=== PATIENT | male | born 1965 | race Caucasian/White ===

== ENCOUNTER 2020-03-28 15:40 | Inpatient (IN) | payer BC ==
[~2020-03-28] VITALS: Ht 182.9 cm; Wt 113.6 kg
[2020-03-28] MEDS ORDERED: iohexol 350MG/ML 100ml bottle IV ONE (18:43)
[2020-03-28] MEDS ORDERED: dextrose 50%-water 50ml dispensing syringe IV PRN ×2 (19:45)
[2020-03-28] MEDS ORDERED: mag hydrox/Alum hydrox/simeth 30ml oral suspension PO PRN (19:45)
[2020-03-28] MEDS ORDERED: magnesium hydroxide 30ml (MOM) UD suspension PO PRN (19:45)
[2020-03-28] MEDS ORDERED: dextrose ORAL solution 15 GM/59 ML bottle PO PRN ×2 (19:45)
[2020-03-28] MEDS ORDERED: magnesium Cl slow-release 64mg tablet PO PRN (19:45)
[2020-03-28] MEDS ORDERED: potassium Cl 20 mEq SR tablet PO PRN ×2 (19:45)
[2020-03-28] MEDS ORDERED: MESSAGE TO PHARMACY PO ONE (19:45)
[2020-03-28] MEDS ORDERED: magnesium 2GM in 50ml NS 50 ML IV PRN (19:45)
[2020-03-28] MEDS ORDERED: HYDROcodone/acetaminophen 5mg/325mg tablet PO PRN (19:45)
[2020-03-28] MEDS ORDERED: glucagon, human recombinant 1mg kit SUBCUT PRN (19:45)
[2020-03-28] MEDS ORDERED: ondansetron/PF 4mg/2ml inj IV PRN (19:45)
[2020-03-28] MEDS ORDERED: magnesium 4gm in 100ml NS 100 ML IV PRN (19:45)
[2020-03-28] MEDS ORDERED: acetaminophen 325mg tablet PO PRN (19:45)
[2020-03-28] MEDS ORDERED: potassium CL 10mEq/100ml bag 100 ML IV PRN ×2 (19:45)
[2020-03-28] MEDS: K and/or MAG REPLACEMENT MC SCH (20:00)
[2020-03-28] MEDS: docusate sod 100mg capsule PO SCH (20:00)
[2020-03-28] MEDS ORDERED: AZAT50TA18 PO (20:45)
[2020-03-28] MEDS: insulin glargine (Lantus) pen - multi-dose SQ SCH ×2 (21:00→23:54)
--- NOTE | 2020-03-28 21:00 | NUR ---
I have received report from Jerome SUMMERS and had the opportunity to ask questions and assume patient care.
--- NOTE | 2020-03-28 21:15 | NUR ---
Patient has arrived from ER via gurney. Alert and oriented. Vital signs BP 125/84, Heart rate 94, Temp 98.0 Resp rate 18, O2 93% Blood sugar 527. Skin check performed, MRSA swab obtained. Will continue to monitor and treat as needed.
[2020-03-28 22:00] VITALS: BP 125/84
[2020-03-28] MEDS: normal saline 1000ml 1,000 ML IV SCH (22:44)
[2020-03-28] MEDS: insulin Lispro (HumaLOG) vial - multi-dose SQ SCH (23:21)
[2020-03-28 23:37] LABS: ALANINE AMINOTRANSFERASE 116 U/L (12-78); ALBUMIN/GLOBULIN RATIO 0.4 (1.1-1.5); ALKALINE PHOSPHATASE 112 IU/L (46-116); ANION GAP 14 (8-16); ASPARTATE AMINO TRANSFERASE 119 U/L (10-37); BILIRUBIN,TOTAL 0.8 MG/DL (0.1-1.0); BLOOD UREA NITROGEN 37 MG/DL (7-18); BUN/CREATININE RATIO 16.5 (5.4-32.0); CALCIUM 8.5 MG/DL (8.5-10.1); CHLORIDE 96 MMOL/L (99-107); CREATININE 2.24 MG/DL (0.60-1.10); SODIUM 128 MMOL/L (135-145); TOTAL CARBON DIOXIDE 17.7 MMOL/L (24-32); TOTAL PROTEIN 6.5 G/DL (6.4-8.2); eGFR 31 ML/MIN
--- NOTE | 2020-03-28 23:42 | NUR ---
MESSAGE: Re: Eliseo Rene rm [id number] Patient had a blood sugar of 527, can I give lantus past the scheduled time of 2100. Thank you
--- NOTE | 2020-03-28 23:45 | NUR ---
Not able to treat Blood sugar with lantus at 2100, Lab with GFR not available, medication not on floor, patient was transferring up from ER.
[2020-03-28 23:52] LABS: GLUCOSE 544 MG/DL (70-104)
[2020-03-29 02:00] VITALS: BP 118/79
[2020-03-29 06:00] VITALS: BP 112/79
[2020-03-29 06:11] LABS: BASOPHILS % (AUTO) 0.2 % (0-1); EOSINOPHILS % (AUTO) 0.1 % (0-6); HEMATOCRIT 35.6 % (42.0-52.0); HEMOGLOBIN 11.8 g/dl (14.0-17.9); LYMPHOCYTES # (AUTO) 0.7 X10'3 (1.1-4.8); LYMPHOCYTES % (AUTO) 4.1 % (21-51); MEAN CORPUSCULAR HEMOGLOBIN 29.1 PG (27.0-31.0); MEAN CORPUSCULAR HGB CONC 33.1 g/dL (33.0-36.5); MEAN CORPUSCULAR VOLUME 87.9 FL (78-98); MEAN PLATELET VOLUME 10.1 FL (7.4-10.4); MONOCYTES # (AUTO) 0.6 X10'3 (0-0.9); MONOCYTES % (AUTO) 3.3 % (2-12); NEUTROPHILS # (AUTO) 15.4 X10'3 (1.8-7.7); NEUTROPHILS % (AUTO) 92.3 % (42-75); PLATELET COUNT 131 X10'3 (140-440); RED BLOOD COUNT 4.05 X10'6 (4.70-6.10); RED CELL DISTRIBUTION WIDTH 15.2 % (11.5-14.5); WHITE BLOOD COUNT 16.7 X10'3 (4.5-11.0)
[2020-03-29 06:37] LABS: ALANINE AMINOTRANSFERASE 124 U/L (12-78); ALBUMIN 2.1 G/DL (3.4-5.0); ALBUMIN/GLOBULIN RATIO 0.4 (1.1-1.5); ALKALINE PHOSPHATASE 126 IU/L (46-116); ANION GAP 16 (8-16); ASPARTATE AMINO TRANSFERASE 117 U/L (10-37); BILIRUBIN,TOTAL 0.7 MG/DL (0.1-1.0); BLOOD UREA NITROGEN 45 MG/DL (7-18); CALCIUM 9.1 MG/DL (8.5-10.1); CHLORIDE 98 MMOL/L (99-107); CREATININE 1.96 MG/DL (0.60-1.10); MAGNESIUM 2.6 MG/DL (1.5-2.4); POTASSIUM 4.6 MMOL/L (3.5-5.1); SODIUM 131 MMOL/L (135-145); TOTAL CARBON DIOXIDE 16.7 MMOL/L (24-32); TOTAL PROTEIN 6.9 G/DL (6.4-8.2); eGFR 36 ML/MIN
--- NOTE | 2020-03-29 06:44 | NUR ---
Patient in room PCU 3019. I have received report from Bernice SUMMERS and had the opportunity to ask questions and assume patient care.
[2020-03-29 06:49] LABS: GLUCOSE 531 MG/DL (70-104)
--- NOTE | 2020-03-29 06:52 | NUR ---
Patient in room PCU 3019. I have received report from Trish SUMMERS and had the opportunity to ask questions and assume patient care.
[2020-03-29] MEDS: CefTRIAXone/D5W-Rocephin 1gm 50 ML IV SCH (07:32)
[2020-03-29] MEDS: normal saline 1000ml 1,000 ML IV SCH ×2 (07:32→14:36)
[2020-03-29] MEDS: docusate sod 100mg capsule PO SCH ×2 (08:00→19:17)
[2020-03-29] MEDS: K and/or MAG REPLACEMENT MC SCH ×2 (08:00→20:36)
[2020-03-29] MEDS: insulin Lispro (HumaLOG) vial - multi-dose SQ SCH ×4 (08:30→21:25)
[2020-03-29] MEDS: azithromycin/NS 500mg/250ml 250 ML IV SCH (08:36)
[2020-03-29 11:00] VITALS: BP 105/70
[2020-03-29 15:00] VITALS: BP 98/55
--- NOTE | 2020-03-29 16:40 | NUR ---
DM consult, pt newly diagnosed type 2 DM with hgb A1c of 10.9%, accuchecks range 443-534 mg/dl. Pt seen at bedside and given written DM education handout with verbal review; discussed types of carbs, serving sizes, carb counting, planning meals, exercise, and given RD contact information if any additional questions. Addendum: 03/29/20 at [address] Amended: Links added.
[2020-03-29 18:00] VITALS: BP 107/60
--- NOTE | 2020-03-29 18:05 | NUR ---
Problems reprioritized. Patient report given, questions answered & plan of care reviewed with Minor SUMMERS.
--- NOTE | 2020-03-29 18:07 | NUR ---
Patient in room U 3019. I have received report from KRISTOPHER Queen and had the opportunity to ask questions and assume patient care. Patient resting in bed, no signs of distress. Safety measures in place, bed in low and locked position. Call light and personal items within reach. Will continue to monitor
[2020-03-29] MEDS: insulin glargine (Lantus) pen - multi-dose SQ SCH (21:19)
[2020-03-29 22:00] VITALS: BP 112/54
[2020-03-30] VITALS (8 sets, daily range): BP systolic 89–206; BP diastolic 36–163
[2020-03-30] MEDS: normal saline 1000ml 1,000 ML IV SCH ×2 (05:31→05:32)
[2020-03-30 06:30] LABS: BASOPHILS % (AUTO) 0 % (0-1); EOSINOPHILS % (AUTO) 0.1 % (0-6); HEMATOCRIT 34.3 % (42.0-52.0); HEMOGLOBIN 11.7 g/dl (14.0-17.9); LYMPHOCYTES % (AUTO) 5.7 % (21-51); MEAN CORPUSCULAR HEMOGLOBIN 29.7 PG (27.0-31.0); MEAN CORPUSCULAR HGB CONC 34.2 g/dL (33.0-36.5); MEAN CORPUSCULAR VOLUME 86.9 FL (78-98); MEAN PLATELET VOLUME 9.8 FL (7.4-10.4); MONOCYTES # (AUTO) 0.6 X10'3 (0-0.9); MONOCYTES % (AUTO) 3.4 % (2-12); NEUTROPHILS # (AUTO) 16.5 X10'3 (1.8-7.7); NEUTROPHILS % (AUTO) 90.8 % (42-75); PLATELET COUNT 163 X10'3 (140-440); RED BLOOD COUNT 3.94 X10'6 (4.70-6.10); WHITE BLOOD COUNT 18.1 X10'3 (4.5-11.0)
--- NOTE | 2020-03-30 06:42 | NUR ---
Problems reprioritized. Patient report given, questions answered & plan of care reviewed with KRISTOPHER Fletcher. Medications administered as ordered. Care plan followed. Safety measures in place, bed in low and locked position. Call light and personal items within reach. Will continue to monitor for remainder of shift.
--- NOTE | 2020-03-30 06:51 | NUR ---
Patient in room PCU 3019. I have received report from Minor SUMMERS and had the opportunity to ask questions and assume patient care.
[2020-03-30 06:53] LABS: ALANINE AMINOTRANSFERASE 142 U/L (12-78); ALBUMIN 1.9 G/DL (3.4-5.0); ALBUMIN/GLOBULIN RATIO 0.5 (1.1-1.5); ALKALINE PHOSPHATASE 110 IU/L (46-116); ANION GAP 14 (8-16); ASPARTATE AMINO TRANSFERASE 131 U/L (10-37); BILIRUBIN,TOTAL 0.5 MG/DL (0.1-1.0); BLOOD UREA NITROGEN 37 MG/DL (7-18); BUN/CREATININE RATIO 31.4 (5.4-32.0); CALCIUM 8.9 MG/DL (8.5-10.1); CHLORIDE 106 MMOL/L (99-107); CREATININE 1.18 MG/DL (0.60-1.10); GLUCOSE 293 MG/DL (70-104); MAGNESIUM 2.3 MG/DL (1.5-2.4); POTASSIUM 4.1 MMOL/L (3.5-5.1); SODIUM 140 MMOL/L (135-145); TOTAL CARBON DIOXIDE 20.1 MMOL/L (24-32); TOTAL PROTEIN 6.1 G/DL (6.4-8.2); eGFR 65 ML/MIN
[2020-03-30] MEDS: docusate sod 100mg capsule PO SCH ×2 (08:00→20:00)
[2020-03-30] MEDS: K and/or MAG REPLACEMENT MC SCH ×2 (08:00→20:33)
[2020-03-30] MEDS: CefTRIAXone/D5W-Rocephin 1gm 50 ML IV SCH (08:04)
[2020-03-30] MEDS: heparin, porcine 5000 units/ml vial SQ SCH ×2 (08:05→20:05)
[2020-03-30] MEDS: insulin Lispro (HumaLOG) vial - multi-dose SQ SCH ×2 (08:27→13:00)
[2020-03-30] MEDS: azithromycin/NS 500mg/250ml 250 ML IV SCH (13:04)
--- NOTE | 2020-03-30 15:30 | NUR ---
Patient has temp of 100.8F, HR 150, RR 40's, (+)Short of breath, O2 sat 90-92% on room air. Patient was shivering BP elevated 206/163. Blood sugar checked 207mg/dl. Charge nurse Chika came in to see patient. She called Dr. Holt to update about patient condition
--- NOTE | 2020-03-30 15:35 | NUR ---
ID: [id number] MESSAGE: [id number] KRYSTYNA. RAPID CALLED. HR 150. BP 206/163. RR 43. BS 207. LUIS M SHANNANU
[2020-03-30] MEDS ORDERED: normal saline 1000ml 1,000 ML IV ONE ×2 (15:45→19:50)
[2020-03-30] MEDS ORDERED: methylPREDNISolone sod succ 125mg/2ml vial IV ONE (15:45)
--- NOTE | 2020-03-30 15:50 | NUR ---
BP was 85/37, HR 140's, still short of breath, hooked patient to O2 @ 2lpm/nc - O2 sat 94%
--- NOTE | 2020-03-30 15:52 | NUR ---
BULK PLANT SUPERVISOR Clara talking to Dr. Holt on the phone regarding patient condition
--- NOTE | 2020-03-30 15:57 | NUR ---
IVF NS 1L bolus ongoing right now. BP 91/36, HR 146, O2 sat 96% at 4lpm/nc.
[2020-03-30] MEDS ORDERED: acetaminophen 650mg rectal suppository RC STA (16:03)
--- NOTE | 2020-03-30 16:08 | NUR ---
RAISA Sylvester came by to see patient. Received order to give Tylenol suppository x 1
[2020-03-30 16:30] LABS: ALANINE AMINOTRANSFERASE 168 U/L (12-78); ALBUMIN/GLOBULIN RATIO 0.5 (1.1-1.5); ALKALINE PHOSPHATASE 225 IU/L (46-116); ANION GAP 14 (8-16); ASPARTATE AMINO TRANSFERASE 167 U/L (10-37); BILIRUBIN,TOTAL 0.9 MG/DL (0.1-1.0); BLOOD UREA NITROGEN 40 MG/DL (7-18); BUN/CREATININE RATIO 23.3 (5.4-32.0); CALCIUM 10.1 MG/DL (8.5-10.1); CHLORIDE 108 MMOL/L (99-107); CREATININE 1.72 MG/DL (0.60-1.10); GLUCOSE 195 MG/DL (70-104); POTASSIUM 3.3 MMOL/L (3.5-5.1); SODIUM 141 MMOL/L (135-145); TOTAL CARBON DIOXIDE 18.6 MMOL/L (24-32); TOTAL PROTEIN 6.4 G/DL (6.4-8.2); eGFR 42 ML/MIN
[2020-03-30] MEDS ORDERED: vancomycin/NS 1 GM ADD-VANTAGE 250 ML IV ONE (16:30)
[2020-03-30 16:33] LABS: TROPONIN I 0.07 NG/ML (0.0-0.05)
[2020-03-30 16:36] LABS: ABG BASE EXCESS -6.5 mmol/L (-2.0-2.0); ABG HCO3 13.6 mmol/L (22.0-26.0); ABG OXYGEN SATURATION 96.4 % (94-97); ABG PCO2 (T) 19.3 mmHg (35.0-48.0); ABG PO2 (T) 91.1 mmHg (75.0-100.0); ALLEN'S TEST POSITIVE; FCOHb 0.6 % (0.0-3.9); FLOW 4 L/min; FMetHb 0.2 % (0.0-1.5); FO2Hb 95.6 % (94-97); PATIENT TEMPERATURE 38.8; TOTAL HEMOGLOBIN 14.7 G/dl (14.0-18.0)
[2020-03-30] MEDS ORDERED: potassium Cl 40MEQ/1/2NS 520ml 520 ML IV PRN (16:55)
--- NOTE | 2020-03-30 17:01 | NUR ---
RT PAGED FOR BIPAP ORDER. BIPAP PLACED ON PATIENT AND PATIENT STATED THAT HE DID NOT WANT BIPAP LEFT ON HIM AND THAT IT WAS INCREASING HIS ANXIETY. BIPAP WAS TAKEN OFF, PATIENT PLACED ON 2LNC. BOTH RN AND MARCO ANTONIO NOTIFIED. Addendum: 03/30/20 at 1707 by Terese Call RT Amended: Links added.
[2020-03-30] MEDS: piperacillin/tazo 4.5gm/100ml 100 ML IV SCH (17:07)
[2020-03-30] MEDS ORDERED: VANCOmycin 2,000MG in NS 500ml IV soln IV ONE (17:15)
[2020-03-30] MEDS: potassium cl 20mEq in 1/2 NS 1,000 ML IV SCH (17:51)
--- NOTE | 2020-03-30 18:00 | NUR ---
Patient in room PCU 3019. I have received report from Bisi SUMMERS and had the opportunity to ask questions and assume patient care.
--- NOTE | 2020-03-30 18:16 | NUR ---
Problems reprioritized. Patient report given, questions answered & plan of care reviewed with Shilpi SUMMERS and Yassine SUMMERS.
[2020-03-30 19:32] LABS: BASOPHILS % (AUTO) 0.4 % (0-1); EOSINOPHILS # (AUTO) 0.3 X10'3 (0-0.9); EOSINOPHILS % (AUTO) 3.3 % (0-6); HEMATOCRIT 36.8 % (42.0-52.0); HEMOGLOBIN 12.5 g/dl (14.0-17.9); LYMPHOCYTES # (AUTO) 0.2 X10'3 (1.1-4.8); LYMPHOCYTES % (AUTO) 2.8 % (21-51); MEAN CORPUSCULAR HEMOGLOBIN 29.4 PG (27.0-31.0); MEAN CORPUSCULAR HGB CONC 34.1 g/dL (33.0-36.5); MEAN CORPUSCULAR VOLUME 86.2 FL (78-98); MEAN PLATELET VOLUME 9.5 FL (7.4-10.4); MONOCYTES # (AUTO) 0.1 X10'3 (0-0.9); MONOCYTES % (AUTO) 1.3 % (2-12); NEUTROPHILS # (AUTO) 8.2 X10'3 (1.8-7.7); NEUTROPHILS % (AUTO) 92.2 % (42-75); PLATELET COUNT 162 X10'3 (140-440); RED BLOOD COUNT 4.27 X10'6 (4.70-6.10); RED CELL DISTRIBUTION WIDTH 15.2 % (11.5-14.5); WHITE BLOOD COUNT 8.9 X10'3 (4.5-11.0)
[2020-03-30 19:33] LABS: ALANINE AMINOTRANSFERASE 145 U/L (12-78); ALBUMIN 1.8 G/DL (3.4-5.0); ALBUMIN/GLOBULIN RATIO 0.5 (1.1-1.5); ALKALINE PHOSPHATASE 138 IU/L (46-116); ANION GAP 13 (8-16); ASPARTATE AMINO TRANSFERASE 140 U/L (10-37); BILIRUBIN,TOTAL 0.8 MG/DL (0.1-1.0); BLOOD UREA NITROGEN 41 MG/DL (7-18); BUN/CREATININE RATIO 20.1 (5.4-32.0); CALCIUM 8.6 MG/DL (8.5-10.1); CHLORIDE 108 MMOL/L (99-107); CREATININE 2.04 MG/DL (0.60-1.10); GLUCOSE 147 MG/DL (70-104); POTASSIUM 3.3 MMOL/L (3.5-5.1); SODIUM 140 MMOL/L (135-145); TOTAL CARBON DIOXIDE 19.3 MMOL/L (24-32); TOTAL PROTEIN 5.6 G/DL (6.4-8.2); eGFR 34 ML/MIN
[2020-03-30] MEDS ORDERED: normal saline 1000ml 1,000 ML IVB ONE (19:55)
[2020-03-30] MEDS ORDERED: methylPREDNISolone sod succ 125mg/2ml vial IV SCH (20:00)
[2020-03-30] MEDS: methylPREDNISolone sod succ/PF 40mg inj. IV SCH (20:04)
[2020-03-30] MEDS: insulin glargine (Lantus) pen - multi-dose SQ SCH (20:32)
[2020-03-30 23:31] LABS: CLARITY,URINE SLIGHTLY CLOUDY (Clear); COLOR,URINE YELLOW (Yellow); GLUCOSE, URINE NEGATIVE (Neg); KETONES,URINE NEGATIVE (Neg); LEUKOCYTE ESTERASE ,URINE LARGE (Neg); NITRITES, URINE NEGATIVE (Neg); OCCULT BLOOD,URINE MODERATE (Neg); PH,URINE 5.5 (4.8-8.0); PROTEIN,URINE 30 mg/dl (Neg)
[2020-03-30 23:38] LABS: UA COLLECTION TYPE CLN CATCH MIDSTREAM
[2020-03-30 23:39] LABS: BACTERIA,URINE FEW /HPF (Neg); SQUAMOUS EPITHELIAL CELL,UR FEW /LPF (FEW); WBC,URINE 50-100 /HPF (0-4)
[2020-03-30 23:40] LABS: WBC CLUMPS,URINE FEW /HPF (NEGATIVE)
[2020-03-30 23:50] LABS: URINE AMPHETAMINE SCREEN NEGATIVE (Neg); URINE BARBITUATE SCREEN NEGATIVE (Neg); URINE BENZODIAZEPINES SCREEN NEGATIVE (Neg); URINE CANNABINOID SCREEN NEGATIVE (Neg); URINE COCAINE SCREEN NEGATIVE (Neg); URINE METHADONE SCREEN NEGATIVE (Neg); URINE OPIATE SCREEN NEGATIVE (Neg); URINE PHENCYCLIDINE SCREEN NEGATIVE (Neg)
[2020-03-31] MEDS: potassium cl 20mEq in 1/2 NS 1,000 ML IV SCH ×3 (00:21→07:48)
[2020-03-31] MEDS: piperacillin/tazo 4.5gm/100ml 100 ML IV SCH ×3 (00:21→16:06)
[2020-03-31] MEDS: methylPREDNISolone sod succ/PF 40mg inj. IV SCH ×4 (01:44→21:00)
[2020-03-31 02:00] VITALS: BP 85/60
[2020-03-31] MEDS: vancomycin/NS 1 GM ADD-VANTAGE 250 ML IV SCH ×2 (04:49→17:23)
[2020-03-31 05:01] LABS: ABG BASE EXCESS -9.2 mmol/L (-2.0-2.0); ABG OXYGEN SATURATION 96.8 % (94-97); ABG PCO2 (T) 27.1 mmHg (35.0-48.0); ABG PO2 (T) 92.8 mmHg (75.0-100.0); ALLEN'S TEST POSITIVE; FMetHb 0.2 % (0.0-1.5); FO2Hb 96.6 % (94-97); PATIENT TEMPERATURE 36.6; TOTAL HEMOGLOBIN 11.7 G/dl (14.0-18.0)
--- NOTE | 2020-03-31 06:09 | NUR ---
Orientee documentation: I have reviewed and agree with all interventions, assessments performed and documented by Ariana SUMMERS.
[2020-03-31 06:11] LABS: EOSINOPHILS % (AUTO) 0 % (0-6); HEMATOCRIT 33.9 % (42.0-52.0); MEAN PLATELET VOLUME 9.6 FL (7.4-10.4); NEUTROPHILS % (AUTO) 97.5 % (42-75)
[2020-03-31 06:14] LABS: BASOPHILS % (AUTO) 0.2 % (0-1); HEMOGLOBIN 11.4 g/dl (14.0-17.9); LYMPHOCYTES # (AUTO) 0.3 X10'3 (1.1-4.8); LYMPHOCYTES % (AUTO) 1.2 % (21-51); MEAN CORPUSCULAR HEMOGLOBIN 29.5 PG (27.0-31.0); MEAN CORPUSCULAR HGB CONC 33.5 g/dL (33.0-36.5); MEAN CORPUSCULAR VOLUME 88.1 FL (78-98); MONOCYTES # (AUTO) 0.3 X10'3 (0-0.9); MONOCYTES % (AUTO) 1.1 % (2-12); NEUTROPHILS # (AUTO) 24.2 X10'3 (1.8-7.7); PLATELET COUNT 180 X10'3 (140-440); RED BLOOD COUNT 3.85 X10'6 (4.70-6.10); RED CELL DISTRIBUTION WIDTH 15.2 % (11.5-14.5); WHITE BLOOD COUNT 24.8 X10'3 (4.5-11.0)
--- NOTE | 2020-03-31 06:22 | NUR ---
Problems reprioritized. Patient report given, questions answered & plan of care reviewed with Haleigh SUMMERS.
[2020-03-31 06:52] LABS: ALANINE AMINOTRANSFERASE 209 U/L (12-78); ALBUMIN 1.7 G/DL (3.4-5.0); ALBUMIN/GLOBULIN RATIO 0.4 (1.1-1.5); ALKALINE PHOSPHATASE 125 IU/L (46-116); ANION GAP 15 (8-16); ASPARTATE AMINO TRANSFERASE 273 U/L (10-37); BILIRUBIN,TOTAL 1.6 MG/DL (0.1-1.0); BLOOD UREA NITROGEN 36 MG/DL (7-18); BUN/CREATININE RATIO 20.5 (5.4-32.0); CALCIUM 9.2 MG/DL (8.5-10.1); CHLORIDE 107 MMOL/L (99-107); CREATININE 1.76 MG/DL (0.60-1.10); GLUCOSE 317 MG/DL (70-104); MAGNESIUM 1.9 MG/DL (1.5-2.4); POTASSIUM 4.5 MMOL/L (3.5-5.1); SODIUM 138 MMOL/L (135-145); TOTAL PROTEIN 5.6 G/DL (6.4-8.2); eGFR 41 ML/MIN
[2020-03-31 07:00] VITALS: BP 107/68
[2020-03-31] MEDS: heparin, porcine 5000 units/ml vial SQ SCH ×2 (07:49→20:59)
[2020-03-31] MEDS: K and/or MAG REPLACEMENT MC SCH ×2 (07:49→19:01)
[2020-03-31] MEDS: docusate sod 100mg capsule PO SCH ×2 (07:50→20:00)
[2020-03-31 09:04] LABS: TOTAL CELLS COUNTED 100
[2020-03-31 09:06] LABS: PLATELET ESTIMATE NORMAL; POLYCHROMASIA FEW
[2020-03-31] MEDS: insulin Lispro (HumaLOG) vial - multi-dose SQ SCH ×4 (10:00→21:16)
[2020-03-31 11:00] VITALS: BP 127/54
[2020-03-31 11:51] LABS: HIV ANTIBODY 1&2 RAPID NON-REACTIVE (Neg)
[2020-03-31] MEDS ORDERED: LORazepam 2 mg/ml vial IV ONE (12:45)
--- NOTE | 2020-03-31 14:08 | NUR ---
PAGER ID: [phone] MESSAGE: Corby BondsEdgard. Pt was unable to have MRI at this time as he was unable to follow commands and stay still. MRI will try again later. Haleigh [phone]
[2020-03-31 15:00] VITALS: BP 98/62
[2020-03-31] MEDS: sodium bicarbonate 650mg tablet PO SCH ×2 (16:05→20:59)
--- NOTE | 2020-03-31 17:52 | NUR ---
post void bladder scan 240ml
--- NOTE | 2020-03-31 18:17 | NUR ---
Problems reprioritized. Patient report given, questions answered & plan of care reviewed with Karen SUMMERS.
[2020-03-31 18:54] VITALS: BP 105/65
[2020-03-31] MEDS: insulin glargine (Lantus) pen - multi-dose SQ SCH (21:17)
[2020-03-31 22:41] VITALS: BP 105/67
[2020-04-01] MEDS: piperacillin/tazo 4.5gm/100ml 100 ML IV SCH ×2 (00:13→07:40)
[2020-04-01] MEDS: potassium cl 20mEq in 1/2 NS 1,000 ML IV SCH ×5 (01:50→20:19)
[2020-04-01 02:00] VITALS: BP 107/72
[2020-04-01] MEDS: vancomycin/NS 1 GM ADD-VANTAGE 250 ML IV SCH (04:40)
[2020-04-01 06:00] VITALS: BP 118/74
[2020-04-01 06:16] LABS: BASOPHILS % (AUTO) 0.1 % (0-1); EOSINOPHILS % (AUTO) 0 % (0-6); HEMATOCRIT 33.5 % (42.0-52.0); HEMOGLOBIN 11.3 g/dl (14.0-17.9); LYMPHOCYTES # (AUTO) 0.6 X10'3 (1.1-4.8); LYMPHOCYTES % (AUTO) 2.9 % (21-51); MEAN CORPUSCULAR HEMOGLOBIN 29.4 PG (27.0-31.0); MEAN CORPUSCULAR HGB CONC 33.8 g/dL (33.0-36.5); MEAN CORPUSCULAR VOLUME 87.1 FL (78-98); MEAN PLATELET VOLUME 9.4 FL (7.4-10.4); MONOCYTES # (AUTO) 0.6 X10'3 (0-0.9); MONOCYTES % (AUTO) 2.7 % (2-12); NEUTROPHILS # (AUTO) 20.9 X10'3 (1.8-7.7); NEUTROPHILS % (AUTO) 94.3 % (42-75); PLATELET COUNT 209 X10'3 (140-440); RED BLOOD COUNT 3.85 X10'6 (4.70-6.10); RED CELL DISTRIBUTION WIDTH 15.1 % (11.5-14.5); WHITE BLOOD COUNT 22.2 X10'3 (4.5-11.0)
--- NOTE | 2020-04-01 06:28 | NUR ---
REPORT GIVEN TO KRISTOPHER CARDONA.
[2020-04-01 06:41] LABS: ALANINE AMINOTRANSFERASE 172 U/L (12-78); ALBUMIN 1.6 G/DL (3.4-5.0); ALBUMIN/GLOBULIN RATIO 0.4 (1.1-1.5); ALKALINE PHOSPHATASE 120 IU/L (46-116); ANION GAP 13 (8-16); ASPARTATE AMINO TRANSFERASE 93 U/L (10-37); BILIRUBIN,TOTAL 0.8 MG/DL (0.1-1.0); BLOOD UREA NITROGEN 34 MG/DL (7-18); BUN/CREATININE RATIO 27.2 (5.4-32.0); CALCIUM 8.5 MG/DL (8.5-10.1); CHLORIDE 107 MMOL/L (99-107); CREATININE 1.25 MG/DL (0.60-1.10); GLUCOSE 301 MG/DL (70-104); POTASSIUM 3.5 MMOL/L (3.5-5.1); SODIUM 140 MMOL/L (135-145); TOTAL CARBON DIOXIDE 20.5 MMOL/L (24-32); TOTAL PROTEIN 5.6 G/DL (6.4-8.2); eGFR 61 ML/MIN
--- NOTE | 2020-04-01 06:48 | NUR ---
Patient in room PCU 3019. I have received report from Jenny SUMMERS and had the opportunity to ask questions and assume patient care.
[2020-04-01] MEDS: docusate sod 100mg capsule PO SCH ×2 (08:00→20:07)
[2020-04-01] MEDS: K and/or MAG REPLACEMENT MC SCH ×2 (08:00→20:00)
[2020-04-01] MEDS: sodium bicarbonate 650mg tablet PO SCH ×3 (08:25→20:07)
[2020-04-01] MEDS: heparin, porcine 5000 units/ml vial SQ SCH ×2 (08:25→20:07)
[2020-04-01] MEDS: methylPREDNISolone sod succ/PF 40mg inj. IV SCH ×2 (08:26→20:07)
[2020-04-01] MEDS: insulin Lispro (HumaLOG) vial - multi-dose SQ SCH ×4 (08:49→21:23)
[2020-04-01 11:00] VITALS: BP 108/69
[2020-04-01] MEDS: levoFLOXACIN-Levaquin 750MG/D5 150 ML IV SCH (12:01)
[2020-04-01] MEDS: metroNIDAZOLE-Flagyl 500mg/NS 100 ML IV SCH ×3 (12:01→23:34)
[2020-04-01 15:50] VITALS: BP 108/70
[2020-04-01] MEDS ORDERED: VANCOMYCIN LEVEL IV ONE (16:30)
[2020-04-01 18:00] VITALS: BP 143/96
--- NOTE | 2020-04-01 18:53 | NUR ---
Problems reprioritized. Patient report given, questions answered & plan of care reviewed with Ranjit SUMMERS.
[2020-04-01] MEDS: lactobacillus rhamnosus 10,000 MMU CELLS/CAPSULE PO SCH (20:07)
[2020-04-01] MEDS: insulin glargine (Lantus) pen - multi-dose SQ SCH (21:22)
[2020-04-01 22:00] VITALS: BP 109/65
--- NOTE | 2020-04-02 01:32 | NUR ---
Patient in room PCU 3019. I have received report from Cindy SUMMERS and had the opportunity to ask questions and assume patient care.
[2020-04-02 02:00] VITALS: BP 143/96
--- NOTE | 2020-04-02 06:00 | NUR ---
Patient in room PCU 3019. I have received report from KRISTOPHER Barber and had the opportunity to ask questions and assume patient care.
[2020-04-02 06:01] LABS: BASOPHILS # (AUTO) 0.1 X10'3 (0-0.2); BASOPHILS % (AUTO) 0.3 % (0-1); EOSINOPHILS % (AUTO) 0 % (0-6); HEMATOCRIT 36.3 % (42.0-52.0); HEMOGLOBIN 12.2 g/dl (14.0-17.9); LYMPHOCYTES # (AUTO) 0.8 X10'3 (1.1-4.8); LYMPHOCYTES % (AUTO) 4.6 % (21-51); MEAN CORPUSCULAR HEMOGLOBIN 29.2 PG (27.0-31.0); MEAN CORPUSCULAR HGB CONC 33.6 g/dL (33.0-36.5); MEAN CORPUSCULAR VOLUME 86.7 FL (78-98); MEAN PLATELET VOLUME 9.3 FL (7.4-10.4); MONOCYTES # (AUTO) 0.5 X10'3 (0-0.9); NEUTROPHILS # (AUTO) 16.1 X10'3 (1.8-7.7); NEUTROPHILS % (AUTO) 92.1 % (42-75); PLATELET COUNT 249 X10'3 (140-440); RED BLOOD COUNT 4.18 X10'6 (4.70-6.10); RED CELL DISTRIBUTION WIDTH 15.3 % (11.5-14.5); WHITE BLOOD COUNT 17.5 X10'3 (4.5-11.0)
[2020-04-02 06:23] LABS: ALANINE AMINOTRANSFERASE 118 U/L (12-78); ALBUMIN 1.6 G/DL (3.4-5.0); ALBUMIN/GLOBULIN RATIO 0.4 (1.1-1.5); ALKALINE PHOSPHATASE 118 IU/L (46-116); ANION GAP 8 (8-16); ASPARTATE AMINO TRANSFERASE 32 U/L (10-37); BILIRUBIN,TOTAL 0.5 MG/DL (0.1-1.0); BLOOD UREA NITROGEN 31 MG/DL (7-18); BUN/CREATININE RATIO 31.3 (5.4-32.0); CALCIUM 8.2 MG/DL (8.5-10.1); CHLORIDE 107 MMOL/L (99-107); CREATININE 0.99 MG/DL (0.60-1.10); GLUCOSE 248 MG/DL (70-104); MAGNESIUM 1.8 MG/DL (1.5-2.4); POTASSIUM 3.7 MMOL/L (3.5-5.1); SODIUM 139 MMOL/L (135-145); TOTAL CARBON DIOXIDE 23.8 MMOL/L (24-32); TOTAL PROTEIN 5.4 G/DL (6.4-8.2); eGFR 79 ML/MIN
--- NOTE | 2020-04-02 06:23 | NUR ---
Problems reprioritized. Patient report given, questions answered & plan of care reviewed with Krystina SUMMERS.
[2020-04-02 06:57] VITALS: BP 124/77
[2020-04-02] MEDS: metroNIDAZOLE-Flagyl 500mg/NS 100 ML IV SCH ×2 (07:27→15:16)
[2020-04-02] MEDS: potassium cl 20mEq in 1/2 NS 1,000 ML IV SCH ×2 (07:27→21:37)
[2020-04-02] MEDS: sodium bicarbonate 650mg tablet PO SCH ×3 (07:28→21:36)
[2020-04-02] MEDS: methylPREDNISolone sod succ/PF 40mg inj. IV SCH ×2 (07:28→21:36)
[2020-04-02] MEDS: heparin, porcine 5000 units/ml vial SQ SCH ×2 (07:28→21:36)
[2020-04-02] MEDS: lactobacillus rhamnosus 10,000 MMU CELLS/CAPSULE PO SCH ×2 (07:28→21:35)
[2020-04-02] MEDS: docusate sod 100mg capsule PO SCH ×2 (07:43→19:20)
[2020-04-02] MEDS: K and/or MAG REPLACEMENT MC SCH ×2 (08:00→19:19)
[2020-04-02] MEDS: insulin Lispro (HumaLOG) vial - multi-dose SQ SCH ×4 (08:54→21:49)
[2020-04-02] MEDS: levoFLOXACIN-Levaquin 750MG/D5 150 ML IV SCH (08:55)
[2020-04-02 10:20] LABS: PLATELET ESTIMATE NORMAL; TOTAL CELLS COUNTED 100
[2020-04-02 10:21] LABS: TOXIC GRANULATION 2+
[2020-04-02 11:00] VITALS: BP 123/81
[2020-04-02 14:48] LABS: HBSAG SCREEN Negative (Negative); HEP A AB, IGM Negative (Negative); HEPATITIS C ANTIBODY <0.1 s/co ratio (0.0-0.9)
--- NOTE | 2020-04-02 14:49 | NUR ---
Initial: Pt admit DX RLL PNA, newly DX T2DM A1C 10.9 w/ hx ulcerative colitis taking steroids TREE SURGEON HELPER, lactic acidosis, and sepsis r/t UTI and pyelonephritis per EMR. Acute respiratory failure resolved at this time per MD note; PO hx reflects this w/ 100% PO past 3 carb controlled meals up from 0-25% initially. LBM 04/02; noted as diarrhea today but did receive colace yesterday per EMR. Glu 313 down from 506 w/ increasing Lantus dosages as appropriate per EMR. Given improving PO and additional protein needs w/ DX double proteins added to lunches. Will continue to monitor for PO acceptance and additional protein needs. Rec: 1. continue carb controlled diet; double meats w/ lunches 2. bowel care per rx 3. wt per rx Addendum: 04/02/20 at [address] Amended: Links added.
[2020-04-02 15:00] VITALS: BP 131/77
[2020-04-02 18:00] VITALS: BP 136/84
--- NOTE | 2020-04-02 18:38 | NUR ---
Problems reprioritized. Patient report given, questions answered & plan of care reviewed with KRISTOPHER Ortega.
[2020-04-02] MEDS ORDERED: temazepam 15mg capsule PO ONE (19:35)
[2020-04-02] MEDS: insulin glargine (Lantus) pen - multi-dose SQ SCH (21:51)
[2020-04-02 22:00] VITALS: BP 120/68
[2020-04-03] MEDS: metroNIDAZOLE-Flagyl 500mg/NS 100 ML IV SCH ×2 (00:39→07:45)
[2020-04-03 02:00] VITALS: BP 127/80
[2020-04-03 06:30] VITALS: BP 120/74
--- NOTE | 2020-04-03 06:39 | NUR ---
Problems reprioritized. Patient report given, questions answered & plan of care reviewed with Justine SUMMERS.
--- NOTE | 2020-04-03 06:43 | NUR ---
Patient in room PCU 3019. I have received report from Shannon SUMMERS and had the opportunity to ask questions and assume patient care.
[2020-04-03] MEDS: methylPREDNISolone sod succ/PF 40mg inj. IV SCH (07:42)
[2020-04-03] MEDS: lactobacillus rhamnosus 10,000 MMU CELLS/CAPSULE PO SCH (07:43)
[2020-04-03] MEDS: sodium bicarbonate 650mg tablet PO SCH (07:43)
[2020-04-03] MEDS: docusate sod 100mg capsule PO SCH (07:44)
[2020-04-03] MEDS: heparin, porcine 5000 units/ml vial SQ SCH (07:46)
[2020-04-03] MEDS: potassium cl 20mEq in 1/2 NS 1,000 ML IV SCH (08:29)
[2020-04-03] MEDS: insulin Lispro (HumaLOG) vial - multi-dose SQ SCH (08:37)
[2020-04-03] MEDS: levoFLOXACIN-Levaquin 750MG/D5 150 ML IV SCH (09:27)
[2020-04-03] MEDS ORDERED: PRED20TA PO (10:31)
[2020-04-03] MEDS ORDERED: LACT1CAP26 PO (10:31)
[2020-04-03] MEDS ORDERED: METR-159 PO (10:31)
[2020-04-03] MEDS ORDERED: LEVO750T46 PO (10:31)
[2020-04-03] MEDS ORDERED: sodium bicarbonate tablet PO (10:31)
[2020-04-03] MEDS ORDERED: ALBU8.5H8 IH (10:31)
[2020-04-03] MEDS ORDERED: LINA5TAB4 PO (10:31)
[2020-04-03] MEDS ORDERED: AMA1T PO (10:31)
[2020-04-03] MEDS ORDERED: METF-950 PO (10:31)
[2020-04-03] MEDS ORDERED: SODI650T29 PO (10:32)
[2020-04-03 11:00] VITALS: BP 117/73
--- NOTE | 2020-04-03 11:55 | NUR ---
Discharge instructions given to patient, patient verbalized understanding of all instructions given. New prescriptions e-sent to his pharmacy. Peripheral IV catheter removed, tip intact. Instructed patient to ensure he has all his belongings with him before leaving the hospital. Emphasized follow up with his PCP and other provider. A1C result discussed with patient. Patient was advised to buy glucometer and supplies as it is important that he check his blood sugar before meals
[2020-04-04] MEDS ORDERED: LEVO750T46 PO (18:56)
[2020-04-04] MEDS ORDERED: METF-436 PO (18:56)
[2020-04-04] MEDS ORDERED: ALBU8.5H8 IH (18:56)
[2020-04-04] MEDS ORDERED: GLIM1TAB6 PO (18:56)
[2020-04-04] MEDS ORDERED: PRED10TA PO (18:56)
[2020-04-04] MEDS ORDERED: LACT1CAP26 PO (18:56)
[2020-04-04] MEDS ORDERED: METR500T PO (18:56)
[2020-04-04] MEDS ORDERED: LINA5TAB4 PO (18:56)
[2020-04-04] MEDS ORDERED: SODI650T29 PO ×2 (18:58)
== END 2020-04-03 12:39 | disposition home or self-care (01) | DRG 871 ==
LOC: ER 15:41 → ED HOLD 19:42 → PCU 3S 21:26
PROVIDERS: ADMIT Family Medicine; ATTEND Family Medicine
PROC: B32T1ZZ Computerized Tomography (CT Scan) of Left Pulmonary Artery using Low Osmolar Contrast (ICD-10-PCS; principal; 2020-03-28)
PROC: B3201ZZ Computerized Tomography (CT Scan) of Thoracic Aorta using Low Osmolar Contrast (ICD-10-PCS; 2020-03-28)
PROC: B32S1ZZ Computerized Tomography (CT Scan) of Right Pulmonary Artery using Low Osmolar Contrast (ICD-10-PCS; 2020-03-28)
DX: A41.9 Sepsis, unspecified organism (principal); J18.9 Pneumonia, unspecified organism; J96.21 Acute and chronic respiratory failure with hypoxia; R65.21 Severe sepsis with septic shock; E87.4 Mixed disorder of acid-base balance; J98.11 Atelectasis; N12 Tubulo-interstitial nephritis, not specified as acute or chronic; N17.9 Acute kidney failure, unspecified; E87.2 Acidosis; K52.9 Noninfective gastroenteritis and colitis, unspecified; Z20.828 Contact with and (suspected) exposure to other viral communicable diseases; B34.9 Viral infection, unspecified; I49.3 Ventricular premature depolarization; D35.2 Benign neoplasm of pituitary gland; E11.65 Type 2 diabetes mellitus with hyperglycemia; Z53.20 Procedure and treatment not carried out because of patient's decision for unspecified reasons; R68.2 Dry mouth, unspecified; Z79.899 Other long term (current) drug therapy; E87.6 Hypokalemia
CPT/HCPCS: 36415; 36600; 70450; 70544; 70551; 71045; 71275; 74176; 76700; 80053; 80202; 80305; 81001; 82803; 82948; 83036; 83605; 83735; 84145; 84443; 84484; 85007; 85018; 85025; 86703; 86705; 86706; 86709; 86803; 87040; 87081; 87088; 87340; 93005; 93306; 94660; 94760; 94799; 97116; 97161; 97530; 99285; G0378; J0456; J0696; J1644; J1815; J1956; J2060; J2543; J2920; J2930; J3370; J3480; J3490; J7030; J7040; J7500; Q9967

== ENCOUNTER 2020-04-04 17:55 | Inpatient (IN) | payer BC ==
[~2020-04-04] VITALS: Ht 182.9 cm; Wt 115.5 kg
[~2020-04-04 17:55] MED LIST: ALBU8.5H8 IH; AMA1T PO; AZAT50TA18 PO; LACT1CAP26 PO; LEVO750T46 PO; LINA5TAB4 PO; METF-950 PO; METR-159 PO; PRED20TA PO; SODI650T29 PO; sodium bicarbonate tablet PO
[2020-04-04 18:43] LABS: MEAN PLATELET VOLUME 8.1 FL (7.4-10.4)
[2020-04-04 18:45] LABS: HEMATOCRIT 39.4 % (42.0-52.0); HEMOGLOBIN 13.1 g/dl (14.0-17.9); MEAN CORPUSCULAR HEMOGLOBIN 28.9 PG (27.0-31.0); MEAN CORPUSCULAR HGB CONC 33.4 g/dL (33.0-36.5); MEAN CORPUSCULAR VOLUME 86.6 FL (78-98); PLATELET COUNT 270 X10'3 (140-440); RED BLOOD COUNT 4.55 X10'6 (4.70-6.10)
[2020-04-04] MEDS ORDERED: LACT1CAP26 PO (18:56)
[2020-04-04] MEDS ORDERED: LINA5TAB4 PO (18:56)
[2020-04-04] MEDS ORDERED: METF-436 PO (18:56)
[2020-04-04] MEDS ORDERED: PRED10TA PO (18:56)
[2020-04-04] MEDS ORDERED: GLIM1TAB6 PO (18:56)
[2020-04-04] MEDS ORDERED: ALBU8.5H8 IH (18:56)
[2020-04-04] MEDS ORDERED: METR500T PO (18:56)
[2020-04-04] MEDS ORDERED: LEVO750T46 PO (18:56)
[2020-04-04] MEDS ORDERED: SODI650T29 PO ×2 (18:58)
[2020-04-04 19:09] LABS: ALANINE AMINOTRANSFERASE 68 U/L (12-78); ALBUMIN 1.7 G/DL (3.4-5.0); ALBUMIN/GLOBULIN RATIO 0.5 (1.1-1.5); ALKALINE PHOSPHATASE 124 IU/L (46-116); ANION GAP 10 (8-16); ASPARTATE AMINO TRANSFERASE 32 U/L (10-37); BILIRUBIN,TOTAL 0.9 MG/DL (0.1-1.0); BLOOD UREA NITROGEN 21 MG/DL (7-18); CALCIUM 7.8 MG/DL (8.5-10.1); CHLORIDE 104 MMOL/L (99-107); CREATININE 1.61 MG/DL (0.60-1.10); GLUCOSE 164 MG/DL (70-104); POTASSIUM 3.4 MMOL/L (3.5-5.1); SODIUM 139 MMOL/L (135-145); TOTAL PROTEIN 5.1 G/DL (6.4-8.2); eGFR 45 ML/MIN
[2020-04-04 19:55] LABS: WHITE BLOOD COUNT 37.4 X10'3 (4.5-11.0)
[2020-04-04 20:48] LABS: TOTAL CELLS COUNTED 100
[2020-04-04 20:49] LABS: LARGE PLATELETS FEW; PLATELET ESTIMATE NORMAL; TOXIC GRANULATION 1+; TOXIC VACUOLATION 1+
[2020-04-04] MEDS ORDERED: iohexol 300mg/ml 100ml inj. ONE (20:54)
[2020-04-04] MEDS ORDERED: iohexol 350MG/ML 100ml bottle IV ONE (20:55)
--- NOTE | 2020-04-04 20:56 | NUR ---
LITZY GREENWOOD [phone]. CONTACT FOR ZIGGY
[2020-04-04 21:34] LABS: CLARITY,URINE CLEAR (Clear); COLOR,URINE YELLOW (Yellow); GLUCOSE, URINE NEGATIVE (Neg); KETONES,URINE NEGATIVE (Neg); LEUKOCYTE ESTERASE ,URINE MODERATE (Neg); NITRITES, URINE NEGATIVE (Neg); OCCULT BLOOD,URINE SMALL (Neg); PH,URINE 5.5 (4.8-8.0); PROTEIN,URINE 30 mg/dl (Neg); UROBILINOGEN,URINE 0.2 E.U/dL (0.2-1.0)
[2020-04-04 21:41] LABS: BACTERIA,URINE 2+ /HPF (Neg); RBC,URINE 0-2 /HPF (0-2); SQUAMOUS EPITHELIAL CELL,UR FEW /LPF (FEW); UA COLLECTION TYPE CLN CATCH MIDSTREAM; WBC,URINE 30-50 /HPF (0-4)
[2020-04-04 21:42] LABS: WBC CLUMPS,URINE FEW /HPF (NEGATIVE)
[2020-04-04] MEDS ORDERED: magnesium 4gm in 100ml NS 100 ML IV PRN (23:20)
[2020-04-04] MEDS ORDERED: acetaminophen 325mg tablet PO PRN (23:20)
[2020-04-04] MEDS ORDERED: magnesium 2GM in 50ml NS 50 ML IV PRN (23:20)
[2020-04-04] MEDS ORDERED: magnesium Cl slow-release 64mg tablet PO PRN (23:20)
[2020-04-04] MEDS ORDERED: potassium CL 10mEq/100ml bag 100 ML IV PRN ×2 (23:20)
[2020-04-04] MEDS ORDERED: ondansetron/PF 4mg/2ml inj IV PRN (23:20)
[2020-04-04] MEDS ORDERED: potassium Cl 20 mEq SR tablet PO PRN (23:20)
[2020-04-04] MEDS ORDERED: piperacillin/tazo 3.375gm/50ml 50 ML IV ONE (23:35)
[2020-04-05] MEDS: normal saline 1000ml 1,000 ML IV SCH ×3 (01:37→18:14)
--- NOTE | 2020-04-05 07:24 | NUR ---
COMPLETE NENITA CARE PROVIDED FOR INCONTENENT LOOSE STOOL X2. PLACED IN ATTENDS.
[2020-04-05] MEDS: K and/or MAG REPLACEMENT MC SCH ×2 (08:00→20:00)
[2020-04-05 08:57] LABS: BASOPHILS % (AUTO) 0.2 % (0-1); EOSINOPHILS % (AUTO) 0.2 % (0-6); HEMATOCRIT 35.6 % (42.0-52.0); HEMOGLOBIN 11.9 g/dl (14.0-17.9); LYMPHOCYTES # (AUTO) 0.5 X10'3 (1.1-4.8); LYMPHOCYTES % (AUTO) 2.4 % (21-51); MEAN CORPUSCULAR HEMOGLOBIN 29.2 PG (27.0-31.0); MEAN CORPUSCULAR HGB CONC 33.5 g/dL (33.0-36.5); MEAN PLATELET VOLUME 7.8 FL (7.4-10.4); MONOCYTES # (AUTO) 0.3 X10'3 (0-0.9); MONOCYTES % (AUTO) 1.7 % (2-12); NEUTROPHILS # (AUTO) 18.7 X10'3 (1.8-7.7); NEUTROPHILS % (AUTO) 95.5 % (42-75); PLATELET COUNT 229 X10'3 (140-440); RED BLOOD COUNT 4.09 X10'6 (4.70-6.10); RED CELL DISTRIBUTION WIDTH 15.4 % (11.5-14.5); WHITE BLOOD COUNT 19.6 X10'3 (4.5-11.0)
[2020-04-05] MEDS: CefTRIAXone/D5W-Rocephin 1gm 50 ML IV SCH (08:58)
[2020-04-05 09:00] LABS: ALBUMIN 1.5 G/DL (3.4-5.0); ANION GAP 5 (8-16); BLOOD UREA NITROGEN 19 MG/DL (7-18); BUN/CREATININE RATIO 12.8 (5.4-32.0); CALCIUM 7.2 MG/DL (8.5-10.1); CHLORIDE 106 MMOL/L (99-107); CREATININE 1.49 MG/DL (0.60-1.10); GLUCOSE 140 MG/DL (70-104); MAGNESIUM 1.3 MG/DL (1.5-2.4); POTASSIUM 3.6 MMOL/L (3.5-5.1); SODIUM 140 MMOL/L (135-145); TOTAL CARBON DIOXIDE 29.1 MMOL/L (24-32); eGFR 50 ML/MIN
--- NOTE | 2020-04-05 09:17 | NUR ---
COMPLETE NENITA CARE, LARGE LOOSE STOOL.
--- NOTE | 2020-04-05 09:19 | NUR ---
400 MLS URINE OUT TO URINAL.
--- NOTE | 2020-04-05 09:28 | NUR ---
Stool sample taken d/t 2x of incontinence post admission. Call out to hospitalist.
[2020-04-05 11:05] LABS: C DIFF ANTIGEN NEGATIVE (NEGATIVE); C DIFF SPECIMEN=DIARRHEA? ACCEPTABLE; C DIFFICILE TOXINS A&B NEGATIVE (Neg)
--- NOTE | 2020-04-05 13:27 | NUR ---
PT MOVED TO FT BED A. STABLE AND IN NAD. GIVEN MEAL.
[2020-04-05] MEDS ORDERED: loperamide 2mg capsule PO PRN (16:45)
--- NOTE | 2020-04-05 16:52 | NUR ---
Called Dr. Arthur. Orders to d/c tele and change level of care to surgical.
--- NOTE | 2020-04-05 17:34 | NUR ---
Patient given pitcher of water as requested. Denies any other needs at this time.
[2020-04-05] MEDS: lactobacillus rhamnosus 10,000 MMU CELLS/CAPSULE PO SCH (20:00)
[2020-04-05 22:00] VITALS: BP 126/72
[2020-04-06] VITALS: BP 118/68
[2020-04-06] MEDS ORDERED: insulin Lispro (HumaLOG) vial - multi-dose SQ SCH (00:05)
[2020-04-06] MEDS ORDERED: dextrose ORAL solution 15 GM/59 ML bottle PO PRN ×2 (00:05)
[2020-04-06] MEDS ORDERED: dextrose 50%-water 50ml dispensing syringe IV PRN ×2 (00:05)
[2020-04-06] MEDS ORDERED: MESSAGE TO PHARMACY PO ONE (00:05)
[2020-04-06] MEDS ORDERED: glucagon, human recombinant 1mg kit SUBCUT PRN (00:05)
[2020-04-06] MEDS: normal saline 1000ml 1,000 ML IV SCH (01:31)
--- NOTE | 2020-04-06 06:30 | NUR ---
Patient in room RAHEL 354. I have received report from KRISTOPHER Estrada and had the opportunity to ask questions and assume patient care.
[2020-04-06 07:00] VITALS: BP 117/69
[2020-04-06 07:05] LABS: ALBUMIN 1.4 G/DL (3.4-5.0); ANION GAP 9 (8-16); BLOOD UREA NITROGEN 15 MG/DL (7-18); BUN/CREATININE RATIO 13.4 (5.4-32.0); CALCIUM 8.1 MG/DL (8.5-10.1); CHLORIDE 103 MMOL/L (99-107); CREATININE 1.12 MG/DL (0.60-1.10); GLUCOSE 107 MG/DL (70-104); MAGNESIUM 1.7 MG/DL (1.5-2.4); SODIUM 137 MMOL/L (135-145); TOTAL CARBON DIOXIDE 25.2 MMOL/L (24-32); eGFR 69 ML/MIN
[2020-04-06] MEDS: K and/or MAG REPLACEMENT MC SCH (08:00)
[2020-04-06] MEDS: potassium Cl 20 mEq SR tablet PO PRN ×2 (08:26→12:55)
[2020-04-06] MEDS: lactobacillus rhamnosus 10,000 MMU CELLS/CAPSULE PO SCH (08:26)
[2020-04-06] MEDS: CefTRIAXone/D5W-Rocephin 1gm 50 ML IV SCH (08:27)
[2020-04-06 09:01] LABS: BASOPHILS % (AUTO) 0.3 % (0-1); EOSINOPHILS # (AUTO) 0.1 X10'3 (0-0.9); EOSINOPHILS % (AUTO) 0.6 % (0-6); HEMATOCRIT 33.8 % (42.0-52.0); HEMOGLOBIN 11.3 g/dl (14.0-17.9); LYMPHOCYTES # (AUTO) 0.6 X10'3 (1.1-4.8); LYMPHOCYTES % (AUTO) 4.3 % (21-51); MEAN CORPUSCULAR HGB CONC 33.5 g/dL (33.0-36.5); MEAN CORPUSCULAR VOLUME 86.5 FL (78-98); MEAN PLATELET VOLUME 7.8 FL (7.4-10.4); MONOCYTES # (AUTO) 0.4 X10'3 (0-0.9); MONOCYTES % (AUTO) 3.1 % (2-12); NEUTROPHILS # (AUTO) 12.5 X10'3 (1.8-7.7); NEUTROPHILS % (AUTO) 91.7 % (42-75); PLATELET COUNT 222 X10'3 (140-440); RED CELL DISTRIBUTION WIDTH 15.7 % (11.5-14.5); WHITE BLOOD COUNT 13.7 X10'3 (4.5-11.0)
--- NOTE | 2020-04-06 10:26 | NUR ---
DM consult re: "new dx DM". Pt recently admitted and newly diagnosed with T2DM with A1c 10.9%. Pt seen by RD 03/29 for written and verbal DM education and RD contact information. No further education warranted at this time. Will continue to follow. Addendum: 04/06/20 at [address] Amended: Links added.
[2020-04-06] MEDS ORDERED: LANTUS SQ (10:38)
[2020-04-06] MEDS ORDERED: METF-436 PO (10:38)
[2020-04-06] MEDS ORDERED: METR500T PO (10:38)
[2020-04-06] MEDS ORDERED: LEVO750T46 PO (10:38)
[2020-04-06 11:00] VITALS: BP 124/65
--- NOTE | 2020-04-06 13:15 | NUR ---
Pt discharged to home with all belongings, in private vehicle, accompanied by . Discharge instructions and medications reviewed. New prescriptions called to [facility] in [place]. Pt instructed to follow up with PCP and Dr Cyr in 1 week, pt states he has appointment scheduled with Dr Cyr in 3 days. IV DC'd, cannula intact. Pt stated understanding and willingness to comply. Pt escorted to front lobby via wheelchair by PCT.
[2020-04-06] MEDS ORDERED: POTA20TA10 PO (13:35)
[2020-04-06] MEDS ORDERED: insulin glargine (Lantus) pen - multi-dose SQ SCH (21:00)
[2020-04-07] MEDS ORDERED: LANTUS SQ (10:38)
[2020-04-07] MEDS ORDERED: METF500T PO (10:40)
[2020-04-07] MEDS ORDERED: LEVO750T46 PO (10:47)
== END 2020-04-06 13:14 | disposition home or self-care (01) | DRG 872 ==
LOC: ER 17:55 → ED HOLD 23:20 → UNDOADMIN 23:20 → ED HOLD 23:21 → SUR 3N 04-05 20:16
PROVIDERS: ADMIT Internal Medicine; ATTEND Internal Medicine
DX: A41.9 Sepsis, unspecified organism (principal); N17.9 Acute kidney failure, unspecified; N39.0 Urinary tract infection, site not specified; E11.22 Type 2 diabetes mellitus with diabetic chronic kidney disease; E11.65 Type 2 diabetes mellitus with hyperglycemia; E66.9 Obesity, unspecified; N18.9 Chronic kidney disease, unspecified; R09.02 Hypoxemia; Z79.4 Long term (current) use of insulin; Z79.899 Other long term (current) drug therapy; Z68.34 Body mass index [BMI] 34.0-34.9, adult
CPT/HCPCS: 36415; 71045; 71275; 80048; 80053; 81001; 82948; 83036; 83605; 83735; 84145; 85007; 85025; 87040; 87081; 87088; 87324; 87449; 96365; 99285; G0378; J0696; J1815; J2543; J7030; Q9967

== ENCOUNTER 2020-04-07 00:22 | Inpatient (IN) | payer BC ==
[~2020-04-07] VITALS: Ht 182.9 cm; Wt 119.0 kg
[~2020-04-07 00:22] MED LIST changes: -AMA1T PO; +GLIM1TAB6 PO; +LANTUS SQ; +METF-436 PO; -METF-950 PO; -METR-159 PO; +METR500T PO; +POTA20TA10 PO; -PRED20TA PO; -SODI650T29 PO; -sodium bicarbonate tablet PO
[2020-04-07] MEDS ORDERED: acetaminophen 325mg tablet PO STA (00:28)
[2020-04-07] MEDS ORDERED: CefTRIAXone 2gm/D5W 50ml BAG 50 ML IV ONE (00:30)
[2020-04-07] MEDS ORDERED: normal saline 1000ML IV soln IV ONE (00:30)
[2020-04-07 01:20] LABS: CLARITY,URINE SLIGHTLY CLOUDY (Clear); COLOR,URINE YELLOW (Yellow); GLUCOSE, URINE 100 mg/dl (Neg); KETONES,URINE 15 mg/dl (Neg); LEUKOCYTE ESTERASE ,URINE MODERATE (Neg); NITRITES, URINE NEGATIVE (Neg); OCCULT BLOOD,URINE TRACE-INTACT (Neg); PROTEIN,URINE 30 mg/dl (Neg); UROBILINOGEN,URINE 0.2 E.U/dL (0.2-1.0)
[2020-04-07 01:52] LABS: UA COLLECTION TYPE VOIDED
[2020-04-07 01:54] LABS: BASOPHILS # (AUTO) 0.1 X10'3 (0-0.2); EOSINOPHILS % (AUTO) 0 % (0-6); HEMATOCRIT 34.5 % (42.0-52.0); HEMOGLOBIN 11.7 g/dl (14.0-17.9); LYMPHOCYTES # (AUTO) 0.1 X10'3 (1.1-4.8); LYMPHOCYTES % (AUTO) 0.9 % (21-51); MEAN CORPUSCULAR HEMOGLOBIN 29.6 PG (27.0-31.0); MEAN CORPUSCULAR HGB CONC 33.9 g/dL (33.0-36.5); MEAN CORPUSCULAR VOLUME 87.4 FL (78-98); MEAN PLATELET VOLUME 8.1 FL (7.4-10.4); MONOCYTES # (AUTO) 0.2 X10'3 (0-0.9); NEUTROPHILS # (AUTO) 14.2 X10'3 (1.8-7.7); NEUTROPHILS % (AUTO) 97.1 % (42-75); PLATELET COUNT 195 X10'3 (140-440); RED BLOOD COUNT 3.95 X10'6 (4.70-6.10); RED CELL DISTRIBUTION WIDTH 15.6 % (11.5-14.5); WHITE BLOOD COUNT 14.6 X10'3 (4.5-11.0)
[2020-04-07 01:55] LABS: BACTERIA,URINE FEW /HPF (Neg); MUCUS STRANDS NONE SEEN /LPF (Neg); RBC,URINE 0-2 /HPF (0-2); SQUAMOUS EPITHELIAL CELL,UR NONE SEEN /LPF (FEW); WBC CLUMPS,URINE MODERATE /HPF (NEGATIVE); WBC,URINE TNTC /HPF (0-4)
[2020-04-07 02:18] LABS: ALANINE AMINOTRANSFERASE 33 U/L (12-78); ALBUMIN 1.5 G/DL (3.4-5.0); ALBUMIN/GLOBULIN RATIO 0.4 (1.1-1.5); ALKALINE PHOSPHATASE 116 IU/L (46-116); ANION GAP 10 (8-16); ASPARTATE AMINO TRANSFERASE 17 U/L (10-37); BLOOD UREA NITROGEN 17 MG/DL (7-18); BUN/CREATININE RATIO 14.2 (5.4-32.0); CALCIUM 7.5 MG/DL (8.5-10.1); CHLORIDE 104 MMOL/L (99-107); GLUCOSE 171 MG/DL (70-104); MAGNESIUM 1.3 MG/DL (1.5-2.4); POTASSIUM 3.6 MMOL/L (3.5-5.1); SODIUM 136 MMOL/L (135-145); TOTAL CARBON DIOXIDE 21.9 MMOL/L (24-32); TOTAL PROTEIN 5.3 G/DL (6.4-8.2); eGFR 64 ML/MIN
--- NOTE | 2020-04-07 03:37 | NUR ---
reported to Silverio manuel feels shakey no rigors, urina robert in color. requested IVF to continue orders received.
[2020-04-07] MEDS: normal saline 1000ml 1,000 ML IV SCH ×5 (03:41→15:40)
--- NOTE | 2020-04-07 06:12 | NUR ---
ambulated 100 feet with 2 person assist unable to tolerate ambulation low back pain and patient reported inability to walk and felt "A severe ache in his back." not typical pain for him. Patietn back to bed. rash to face. Reported to Dr Carlton and oncoming MD Dr Bosch both MD at bedside for further evaluation patient updated with plan for MRI and possible transfer to [facility] if spinal abcess found
[2020-04-07 07:32] LABS: C-REACTIVE PROTEIN 11.82 MG/DL (0.0-0.5); FERRITIN 533 NG/ML (26-388); LACTATE DEHYDROGENASE 235 U/L (85-227)
--- NOTE | 2020-04-07 08:32 | NUR ---
COVID SWAB COMPLETED. MRI SCREENING FORM FAXED.
--- NOTE | 2020-04-07 08:47 | NUR ---
HAT BLOCKING MACHINE OPERATOR ARRIVES IN ROOM WITH A W/C TO TAKE PT OUT TO THE MRI TRAILER.
[2020-04-07 10:35] LABS: PARTIAL THROMBOPLASTIN TIME 24 SECONDS (22-32)
[2020-04-07] MEDS ORDERED: LANTUS SQ (10:38)
[2020-04-07] MEDS ORDERED: METF500T PO (10:40)
[2020-04-07] MEDS ORDERED: acetaminophen 325mg tablet PO ONE (10:45)
--- NOTE | 2020-04-07 10:46 | NUR ---
Patient's temp 103. Last tylenol [address] Bosch notified and 650mg tylenol PO ordered.
[2020-04-07] MEDS ORDERED: LEVO750T46 PO (10:47)
[2020-04-07 12:37] LABS: URINE AMPHETAMINE SCREEN NEGATIVE (Neg); URINE BARBITUATE SCREEN NEGATIVE (Neg); URINE BENZODIAZEPINES SCREEN NEGATIVE (Neg); URINE CANNABINOID SCREEN NEGATIVE (Neg); URINE COCAINE SCREEN NEGATIVE (Neg); URINE METHADONE SCREEN NEGATIVE (Neg); URINE OPIATE SCREEN NEGATIVE (Neg); URINE PHENCYCLIDINE SCREEN NEGATIVE (Neg)
[2020-04-07] MEDS ORDERED: GADOTERATE MEGLUMINE 7.5 MMOL/15 ML VIAL IV ONE (12:46)
[2020-04-07] MEDS ORDERED: potassium Cl 20 mEq SR tablet PO PRN ×2 (13:05)
[2020-04-07] MEDS ORDERED: acetaminophen 650mg rectal suppository RC PRN (13:05)
[2020-04-07] MEDS ORDERED: diphenhydrAMINE 25mg capsule PO PRN (13:05)
[2020-04-07] MEDS ORDERED: glucagon, human recombinant 1mg kit SUBCUT PRN (13:05)
[2020-04-07] MEDS ORDERED: dextrose 50%-water 50ml dispensing syringe IV PRN ×2 (13:05)
[2020-04-07] MEDS ORDERED: metroNIDAZOLE-Flagyl 500mg/NS 100 ML IV SCH (13:05)
[2020-04-07] MEDS ORDERED: magnesium Cl slow-release 64mg tablet PO PRN (13:05)
[2020-04-07] MEDS ORDERED: mag hydrox/Alum hydrox/simeth 30ml oral suspension PO PRN (13:05)
[2020-04-07] MEDS ORDERED: bisacodyl 10mg suppository rectal RC PRN (13:05)
[2020-04-07] MEDS ORDERED: morphine 2 MG/ML inj. syringe IV PRN ×2 (13:05)
[2020-04-07] MEDS ORDERED: dextrose ORAL solution 15 GM/59 ML bottle PO PRN ×2 (13:05)
[2020-04-07] MEDS ORDERED: albuterol 2.5 MG/3 ML nebule NEB PRN (13:05)
[2020-04-07] MEDS ORDERED: acetaminophen 325mg tablet PO PRN (13:05)
[2020-04-07] MEDS ORDERED: magnesium 4gm in 100ml NS 100 ML IV PRN (13:05)
[2020-04-07] MEDS ORDERED: magnesium hydroxide 30ml (MOM) UD suspension PO PRN (13:05)
[2020-04-07] MEDS ORDERED: potassium CL 10mEq/100ml bag 100 ML IV PRN ×2 (13:05)
[2020-04-07] MEDS ORDERED: ondansetron/PF 4mg/2ml inj IV PRN (13:05)
[2020-04-07] MEDS ORDERED: MESSAGE TO PHARMACY PO ONE (13:05)
[2020-04-07] MEDS: magnesium 2GM in 50ml NS 50 ML IV PRN ×2 (14:01→22:19)
[2020-04-07] MEDS: predniSONE 20 mg tablet PO SCH (15:29)
[2020-04-07] MEDS: cefepime 1GM/NS ADD-VANTAGE 100 ML IV SCH ×2 (15:29→20:53)
--- NOTE | 2020-04-07 18:40 | NUR ---
Patient iv left ac and right hand infiltrated. IV'S DC. Cannula intact.
[2020-04-07] MEDS: K and/or MAG REPLACEMENT MC SCH (20:00)
[2020-04-07] MEDS: acetaminophen 325mg tablet PO PRN (20:35)
[2020-04-07] MEDS: heparin, porcine 5000 units/ml vial SQ SCH (20:38)
[2020-04-07] MEDS: doxycycline inj 100 MG in normal saline 100ml IV soln 100 ML IV SCH (20:53)
[2020-04-07] MEDS: insulin glargine (Lantus) pen - multi-dose SQ SCH (21:00)
[2020-04-07] MEDS: metroNIDAZOLE-Flagyl 500mg/NS 100 ML IV SCH (22:00)
--- NOTE | 2020-04-07 22:23 | NUR ---
Patient has diarrhea. MD AWARE, C DIFF TEST DONE 2 DAYS AGO AND WAS NEGATIVE.
[2020-04-08] MEDS: normal saline 1000ml 1,000 ML IV SCH ×3 (01:07→22:44)
[2020-04-08 04:47] LABS: ALANINE AMINOTRANSFERASE 29 U/L (12-78); ALBUMIN 1.2 G/DL (3.4-5.0); ALBUMIN/GLOBULIN RATIO 0.3 (1.1-1.5); ALKALINE PHOSPHATASE 125 IU/L (46-116); ANION GAP 10 (8-16); ASPARTATE AMINO TRANSFERASE 22 U/L (10-37); BILIRUBIN,TOTAL 0.6 MG/DL (0.1-1.0); BLOOD UREA NITROGEN 18 MG/DL (7-18); CALCIUM 7.1 MG/DL (8.5-10.1); CHLORIDE 105 MMOL/L (99-107); CHOL/HDL RATIO 5.9 (0.00-4.99); CHOLESTEROL 100 MG/DL (0-200); CREATININE 1.64 MG/DL (0.60-1.10); GLUCOSE 156 MG/DL (70-104); HDL CHOLESTEROL 17 MG/DL (35-60); LDL CHOLESTEROL 52 MG/DL (50-100); MAGNESIUM 2.1 MG/DL (1.5-2.4); PHOSPHORUS 3.4 MG/DL (2.3-4.5); POTASSIUM 4.2 MMOL/L (3.5-5.1); SODIUM 135 MMOL/L (135-145); TOTAL CARBON DIOXIDE 19.7 MMOL/L (24-32); TOTAL PROTEIN 4.9 G/DL (6.4-8.2); TRIGLYCERIDES 109 MG/DL (20-135); eGFR 44 ML/MIN
[2020-04-08 05:18] LABS: BASOPHILS % (AUTO) 0.3 % (0-1); EOSINOPHILS % (AUTO) 0.1 % (0-6); HEMATOCRIT 31.3 % (42.0-52.0); HEMOGLOBIN 10.5 g/dl (14.0-17.9); LYMPHOCYTES # (AUTO) 0.3 X10'3 (1.1-4.8); LYMPHOCYTES % (AUTO) 1.9 % (21-51); MEAN CORPUSCULAR HGB CONC 33.4 g/dL (33.0-36.5); MEAN CORPUSCULAR VOLUME 86.9 FL (78-98); MEAN PLATELET VOLUME 8.7 FL (7.4-10.4); MONOCYTES # (AUTO) 0.5 X10'3 (0-0.9); MONOCYTES % (AUTO) 2.7 % (2-12); NEUTROPHILS # (AUTO) 17.5 X10'3 (1.8-7.7); PLATELET COUNT 216 X10'3 (140-440); RED BLOOD COUNT 3.61 X10'6 (4.70-6.10); RED CELL DISTRIBUTION WIDTH 15.7 % (11.5-14.5); WHITE BLOOD COUNT 18.4 X10'3 (4.5-11.0)
[2020-04-08] MEDS: metroNIDAZOLE-Flagyl 500mg/NS 100 ML IV SCH (07:04)
[2020-04-08] MEDS: K and/or MAG REPLACEMENT MC SCH ×2 (08:00→20:00)
[2020-04-08] MEDS: doxycycline inj 100 MG in normal saline 100ml IV soln 100 ML IV SCH (08:06)
[2020-04-08] MEDS: lactobacillus rhamnosus 10,000 MMU CELLS/CAPSULE PO SCH ×2 (08:14→22:42)
[2020-04-08] MEDS: predniSONE 20 mg tablet PO SCH (08:14)
[2020-04-08] MEDS: cefepime 1GM/NS ADD-VANTAGE 100 ML IV SCH ×2 (09:40→22:42)
[2020-04-08] MEDS: heparin, porcine 5000 units/ml vial SQ SCH ×2 (09:42→20:00)
--- NOTE | 2020-04-08 10:00 | NUR ---
PT STATES HE IS FEELING BETTER.
--- NOTE | 2020-04-08 10:30 | NUR ---
PT GIVEN A SANDWICH.
[2020-04-08] MEDS ORDERED: fentaNYL/PF 50MCG/1 ML 2ML syringe ONE (11:18)
--- NOTE | 2020-04-08 11:49 | NUR ---
PT IS UNABLE TO HAVE HIS LUMBAR PUNCTURE TODAY DUE TO HAVING HAD HEPERIN THIS MORNING. WILL HOLD THE HEPERIN AND HAVE THE TEST TOMORROW.
--- NOTE | 2020-04-08 12:44 | NUR ---
RT IN ROOM FOR BREATHING TREATMENT/TEST
--- NOTE | 2020-04-08 13:11 | NUR ---
PT GIVEN LUNCH TRAY
--- NOTE | 2020-04-08 13:30 | NUR ---
PT NOT HUNGRY, DOESNT WANT TO EAT HIS LUNCH.
[2020-04-08] MEDS: acetaminophen 325mg tablet PO PRN ×3 (14:23→19:43)
--- NOTE | 2020-04-08 14:25 | NUR ---
PATIENT HAS MILD PAIN 3/10. tYLENOL 650 MG PO GIVEN.
--- NOTE | 2020-04-08 16:49 | NUR ---
PTS MOTHER CALLS TO CHECK ON PT.
--- NOTE | 2020-04-08 17:12 | NUR ---
NOTIFY DR LANDAVERDE REGARDING PT'S VS: HR 122, BP91/59, RR 24, OXYGEN 95% RA. TEMP 100.6. PT HAD BEEN DOING VERY WELL THIS MORNING AND EVEN STATED THAT HE FELT BETTER. NOW HE IS SLEEPING AND NOT FEELING WELL. DR LANDAVERDE RECOMMENDS CHECKING PT'S BELONGINGS TO SEE IF HE IS TAKING ANYTHING FROM HOME.
--- NOTE | 2020-04-08 17:56 | NUR ---
PT AWAKE AND STATES HE IS FEELING BETTER.
--- NOTE | 2020-04-08 18:30 | NUR ---
Patient in room U 3024. I have received report from KRISTOPHER South and had the opportunity to ask questions and assume patient care. Patient resting in bed, no signs of distress. Safety measures in place, bed in low and locked position. Call light and personal items within reach. Will continue to monitor throughout shift. Addendum: 04/09/20 at 0212 by Minor Crowley RN Patient in room U 3024. I have received report from KRISTOPHER Pearl and had the opportunity to ask questions and assume patient care. Patient transferred to telemetry from ER at approximately 2100 by surekha. Belongings with patient. Patient resting in bed, no signs of distress. Safety measures in place, bed in low and locked position. Call light and personal items within reach. Will continue to monitor throughout shift.
--- NOTE | 2020-04-08 19:15 | NUR ---
Pt resting in bed with fluids running NS at 100ml/hr. Pt states he doesn't feel well, gets shaky and sweaty. Pt states he feels the same as he did earlier today, no major change. Pt states he is too weak to eat.
--- NOTE | 2020-04-08 19:16 | NUR ---
Vitals taken, position of comfort
[2020-04-08] MEDS: insulin glargine (Lantus) pen - multi-dose SQ SCH (21:00)
[2020-04-09] VITALS (13 sets, daily range): BP systolic 94–116; BP diastolic 53–78
[2020-04-09] MEDS: normal saline 1000ml 1,000 ML IV SCH ×3 (05:05→15:09)
--- NOTE | 2020-04-09 06:24 | NUR ---
Problems reprioritized. Patient report given, questions answered & plan of care reviewed with Minor SUMMERS.
[2020-04-09 06:26] LABS: BASOPHILS # (AUTO) 0.1 X10'3 (0-0.2); BASOPHILS % (AUTO) 0.4 % (0-1); EOSINOPHILS # (AUTO) 0.1 X10'3 (0-0.9); EOSINOPHILS % (AUTO) 0.3 % (0-6); HEMATOCRIT 33.1 % (42.0-52.0); HEMOGLOBIN 11.1 g/dl (14.0-17.9); LYMPHOCYTES # (AUTO) 0.5 X10'3 (1.1-4.8); LYMPHOCYTES % (AUTO) 2.5 % (21-51); MEAN CORPUSCULAR HGB CONC 33.5 g/dL (33.0-36.5); MEAN CORPUSCULAR VOLUME 86.7 FL (78-98); MEAN PLATELET VOLUME 8.4 FL (7.4-10.4); MONOCYTES # (AUTO) 0.5 X10'3 (0-0.9); NEUTROPHILS # (AUTO) 17.3 X10'3 (1.8-7.7); NEUTROPHILS % (AUTO) 93.8 % (42-75); PLATELET COUNT 315 X10'3 (140-440); RED BLOOD COUNT 3.81 X10'6 (4.70-6.10); RED CELL DISTRIBUTION WIDTH 15.8 % (11.5-14.5); WHITE BLOOD COUNT 18.4 X10'3 (4.5-11.0)
--- NOTE | 2020-04-09 06:29 | NUR ---
Problems reprioritized. Patient report given, questions answered & plan of care reviewed with KRISTOPHER Mcdonnell. VSS. Medicatons administered as ordered. Care plan followed. Patient resting in bed with no signs of distress. Safety measures in place, bed in low and locked position. Call light and personal items within reach. Will continue to monitor for remainder of shift.
[2020-04-09 06:35] LABS: ALANINE AMINOTRANSFERASE 26 U/L (12-78); ALBUMIN 1.3 G/DL (3.4-5.0); ALBUMIN/GLOBULIN RATIO 0.3 (1.1-1.5); ALKALINE PHOSPHATASE 130 IU/L (46-116); ANION GAP 9 (8-16); ASPARTATE AMINO TRANSFERASE 18 U/L (10-37); BILIRUBIN,TOTAL 0.6 MG/DL (0.1-1.0); BLOOD UREA NITROGEN 20 MG/DL (7-18); BUN/CREATININE RATIO 11.8 (5.4-32.0); CALCIUM 7.6 MG/DL (8.5-10.1); CHLORIDE 106 MMOL/L (99-107); CREATININE 1.69 MG/DL (0.60-1.10); GLUCOSE 141 MG/DL (70-104); MAGNESIUM 1.8 MG/DL (1.5-2.4); PHOSPHORUS 2.7 MG/DL (2.3-4.5); POTASSIUM 3.7 MMOL/L (3.5-5.1); SODIUM 136 MMOL/L (135-145); TOTAL CARBON DIOXIDE 21.2 MMOL/L (24-32); TOTAL PROTEIN 5.2 G/DL (6.4-8.2); eGFR 43 ML/MIN
[2020-04-09] MEDS: heparin, porcine 5000 units/ml vial SQ SCH ×2 (07:37→19:57)
[2020-04-09] MEDS: K and/or MAG REPLACEMENT MC SCH ×2 (07:37→20:00)
[2020-04-09] MEDS: cefepime 1GM/NS ADD-VANTAGE 100 ML IV SCH (07:41)
[2020-04-09] MEDS: predniSONE 20 mg tablet PO SCH (07:42)
[2020-04-09] MEDS: lactobacillus rhamnosus 10,000 MMU CELLS/CAPSULE PO SCH ×2 (07:42→20:00)
--- NOTE | 2020-04-09 10:37 | NUR ---
Pt recently admitted and newly diagnosed with T2DM with A1c 10.9%. Pt seen by RD that admit on 03/29 for written and verbal DM education and RD contact information. No further education warranted at this time. Will continue to follow. Addendum: 04/09/20 at [address] Amended: Links added.
[2020-04-09] MEDS ORDERED: midazolam 2 mg/2 ml injection ONE (17:33)
[2020-04-09] MEDS ORDERED: fentaNYL/PF 50MCG/1 ML 2ML syringe ONE (17:34)
[2020-04-09] MEDS ORDERED: diphenhydrAMINE 50 mg/ml inj ONE (17:58)
--- NOTE | 2020-04-09 18:00 | NUR ---
Patient in room PCU 3024. I have received report from Kecia SUMMERS and had the opportunity to ask questions and assume patient care.
--- NOTE | 2020-04-09 18:39 | NUR ---
Problems reprioritized. Patient report given, questions answered & plan of care reviewed with Lorne SUMMERS.
[2020-04-09 19:05] LABS: GLUCOSE,CSF 86 MG/DL (40-75); TOTAL PROTEIN,CSF 74 MG/DL (15-45)
[2020-04-09 19:27] LABS: APPEARANCE,CSF CLEAR; CSF SUPERNATANT COLOR COLORLESS; CSF VOLUME 37 ML
[2020-04-09 19:28] LABS: CSF RBC 0 /CU MM (0); CSF WBC CT 2 /CU MM (0-5)
[2020-04-09 19:29] LABS: APPEARANCE,CSF CLEAR; CSF RBC 0 /CU MM (0); CSF SUPERNATANT COLOR COLORLESS; CSF VOLUME 37 ML; CSF WBC CT 1 /CU MM (0-5)
[2020-04-09] MEDS: piperacillin/tazo 3.375gm/50ml 50 ML IV SCH (19:56)
[2020-04-09] MEDS ORDERED: LORazepam 1 MG tablet PO PRN (20:20)
[2020-04-09] MEDS: insulin glargine (Lantus) pen - multi-dose SQ SCH (21:00)
--- NOTE | 2020-04-09 22:23 | NUR ---
PATIENT ARRIVED TO HIS ROOM AFTER HIS LUMBAR PUNCTURE AT 1830 HE WAS EDUCATED ON THE IMPORTANCE OF LYING FLAT FOR 4 HOURS, TWICE I FOUND HIM ON HIS LEFT SIDE AND I EDUCATED HIM AGAIN.
[2020-04-10] MEDS: piperacillin/tazo 3.375gm/50ml 50 ML IV SCH ×3 (01:57→15:13)
[2020-04-10 02:00] VITALS: BP 104/56
[2020-04-10] MEDS: normal saline 1000ml 1,000 ML IV SCH ×2 (03:34→14:46)
[2020-04-10 06:08] LABS: BASOPHILS # (AUTO) 0.2 X10'3 (0-0.2); BASOPHILS % (AUTO) 1.3 % (0-1); EOSINOPHILS # (AUTO) 0.1 X10'3 (0-0.9); EOSINOPHILS % (AUTO) 0.5 % (0-6); HEMATOCRIT 30.7 % (42.0-52.0); HEMOGLOBIN 10.4 g/dl (14.0-17.9); LYMPHOCYTES # (AUTO) 0.6 X10'3 (1.1-4.8); LYMPHOCYTES % (AUTO) 4.6 % (21-51); MEAN CORPUSCULAR HEMOGLOBIN 29.2 PG (27.0-31.0); MEAN CORPUSCULAR HGB CONC 33.7 g/dL (33.0-36.5); MEAN CORPUSCULAR VOLUME 86.7 FL (78-98); MEAN PLATELET VOLUME 8.1 FL (7.4-10.4); MONOCYTES # (AUTO) 0.6 X10'3 (0-0.9); MONOCYTES % (AUTO) 4.4 % (2-12); NEUTROPHILS # (AUTO) 11.8 X10'3 (1.8-7.7); NEUTROPHILS % (AUTO) 89.2 % (42-75); PLATELET COUNT 327 X10'3 (140-440); RED BLOOD COUNT 3.54 X10'6 (4.70-6.10); RED CELL DISTRIBUTION WIDTH 15.7 % (11.5-14.5); WHITE BLOOD COUNT 13.3 X10'3 (4.5-11.0)
[2020-04-10 06:26] LABS: ALANINE AMINOTRANSFERASE 21 U/L (12-78); ALBUMIN 1.2 G/DL (3.4-5.0); ALBUMIN/GLOBULIN RATIO 0.3 (1.1-1.5); ALKALINE PHOSPHATASE 128 IU/L (46-116); ANION GAP 7 (8-16); ASPARTATE AMINO TRANSFERASE 20 U/L (10-37); BILIRUBIN,TOTAL 0.8 MG/DL (0.1-1.0); BLOOD UREA NITROGEN 20 MG/DL (7-18); BUN/CREATININE RATIO 10.2 (5.4-32.0); CALCIUM 7.5 MG/DL (8.5-10.1); CHLORIDE 106 MMOL/L (99-107); CREATININE 1.97 MG/DL (0.60-1.10); GLUCOSE 137 MG/DL (70-104); MAGNESIUM 1.8 MG/DL (1.5-2.4); PHOSPHORUS 2.8 MG/DL (2.3-4.5); POTASSIUM 3.6 MMOL/L (3.5-5.1); SODIUM 135 MMOL/L (135-145); eGFR 36 ML/MIN
--- NOTE | 2020-04-10 06:31 | NUR ---
Patient in room PCU 3024. I have received report from KRISTOPHER Pradhan and had the opportunity to ask questions and assume patient care.
--- NOTE | 2020-04-10 06:35 | NUR ---
Problems reprioritized. Patient report given, questions answered & plan of care reviewed with Macy SUMMERS.
[2020-04-10 07:00] VITALS: BP 109/63
[2020-04-10] MEDS: K and/or MAG REPLACEMENT MC SCH ×2 (08:00→19:17)
[2020-04-10] MEDS: predniSONE 20 mg tablet PO SCH (08:04)
[2020-04-10] MEDS: lactobacillus rhamnosus 10,000 MMU CELLS/CAPSULE PO SCH ×2 (08:04→19:21)
[2020-04-10] MEDS: heparin, porcine 5000 units/ml vial SQ SCH ×2 (08:05→19:23)
[2020-04-10 12:24] VITALS: BP 108/68
[2020-04-10 13:22] LABS: CLARITY,URINE SLIGHTLY CLOUDY (Clear); COLOR,URINE YELLOW (Yellow); GLUCOSE, URINE 100 mg/dl (Neg); KETONES,URINE TRACE mg/dl (Neg); LEUKOCYTE ESTERASE ,URINE SMALL (Neg); NITRITES, URINE NEGATIVE (Neg); OCCULT BLOOD,URINE TRACE-LYSED (Neg); PROTEIN,URINE TRACE mg/dl (Neg); UROBILINOGEN,URINE 0.2 E.U/dL (0.2-1.0)
[2020-04-10 13:28] LABS: UA COLLECTION TYPE NON-SPECIFIED
[2020-04-10 13:32] LABS: HYALINE CASTS 0-3 /LPF (NEGATIVE)
[2020-04-10 13:34] LABS: BACTERIA,URINE FEW /HPF (Neg)
[2020-04-10 13:35] LABS: MUCUS STRANDS FEW /LPF (Neg); SQUAMOUS EPITHELIAL CELL,UR FEW /LPF (FEW)
[2020-04-10 13:39] LABS: WBC,URINE 30-50 /HPF (0-4)
--- NOTE | 2020-04-10 13:50 | NUR ---
TC from dietary: pt requests additional protein w/ meals possible protein shake. Pt PO 0% initial meals though is agreeable to double protein tonight w/ dinner per dietary. Edilma SNYDER recommended given DM hx; notified. Addendum: 04/10/20 at [address] Amended: Links added.
[2020-04-10 14:45] LABS: UA EOSINOPHILS NO EOS /HPF
[2020-04-10 15:00] VITALS: BP 117/72
[2020-04-10 18:00] VITALS: BP 103/58
[2020-04-10] MEDS: NUT.TX.GLUC.INTOLER,LAC-FR,SOY (GLUCERNA) 237 ML PO SCH (18:00)
[2020-04-10 18:43] LABS: TUBE# COUNTED 1; TUBE# COUNTED 4
--- NOTE | 2020-04-10 18:48 | NUR ---
Problems reprioritized. Patient report given, questions answered & plan of care reviewed with KRISTOPHER MCDONOUGH.
[2020-04-10] MEDS: insulin Lispro (HumaLOG) vial - multi-dose SQ SCH (19:29)
[2020-04-10] MEDS: nystatin 15 GM powder TP SCH (21:52)
[2020-04-10] MEDS: insulin glargine (Lantus) pen - multi-dose SQ SCH (21:54)
[2020-04-10 22:00] VITALS: BP 95/55
[2020-04-11] MEDS: piperacillin/tazo 3.375gm/50ml 50 ML IV SCH ×4 (00:17→23:52)
[2020-04-11] MEDS: normal saline 1000ml 1,000 ML IV SCH ×3 (00:18→20:33)
[2020-04-11 02:00] VITALS: BP 103/54
[2020-04-11] MEDS: HYDROcodone/acetaminophen 10/325mg tab PO PRN (02:50)
--- NOTE | 2020-04-11 06:25 | NUR ---
Problems reprioritized. Patient report given, questions answered & plan of care reviewed with Torie SUMMERS.
--- NOTE | 2020-04-11 06:30 | NUR ---
Patient in room PCU 3024. I have received report from KRISTOPHER Ortega and had the opportunity to ask questions and assume patient care.
[2020-04-11 07:00] VITALS: BP 101/59
[2020-04-11 07:42] LABS: BASOPHILS % (AUTO) 0.1 % (0-1); EOSINOPHILS # (AUTO) 0.1 X10'3 (0-0.9); EOSINOPHILS % (AUTO) 0.9 % (0-6); HEMATOCRIT 29.7 % (42.0-52.0); HEMOGLOBIN 9.8 g/dl (14.0-17.9); LYMPHOCYTES # (AUTO) 0.6 X10'3 (1.1-4.8); LYMPHOCYTES % (AUTO) 5.1 % (21-51); MEAN CORPUSCULAR HEMOGLOBIN 28.8 PG (27.0-31.0); MEAN CORPUSCULAR HGB CONC 32.9 g/dL (33.0-36.5); MEAN CORPUSCULAR VOLUME 87.4 FL (78-98); MEAN PLATELET VOLUME 8.5 FL (7.4-10.4); MONOCYTES # (AUTO) 0.5 X10'3 (0-0.9); MONOCYTES % (AUTO) 4.4 % (2-12); NEUTROPHILS # (AUTO) 10.4 X10'3 (1.8-7.7); NEUTROPHILS % (AUTO) 89.5 % (42-75); PLATELET COUNT 356 X10'3 (140-440); RED BLOOD COUNT 3.39 X10'6 (4.70-6.10); RED CELL DISTRIBUTION WIDTH 15.8 % (11.5-14.5); WHITE BLOOD COUNT 11.7 X10'3 (4.5-11.0)
[2020-04-11] MEDS: K and/or MAG REPLACEMENT MC SCH ×2 (08:00→20:00)
[2020-04-11 08:11] LABS: ALANINE AMINOTRANSFERASE 31 U/L (12-78); ALBUMIN 1.1 G/DL (3.4-5.0); ALBUMIN/GLOBULIN RATIO 0.3 (1.1-1.5); ALKALINE PHOSPHATASE 166 IU/L (46-116); ANION GAP 10 (8-16); ASPARTATE AMINO TRANSFERASE 50 U/L (10-37); BLOOD UREA NITROGEN 23 MG/DL (7-18); BUN/CREATININE RATIO 11.1 (5.4-32.0); CALCIUM 7.6 MG/DL (8.5-10.1); CHLORIDE 105 MMOL/L (99-107); CREATININE 2.07 MG/DL (0.60-1.10); GLUCOSE 143 MG/DL (70-104); MAGNESIUM 1.7 MG/DL (1.5-2.4); PHOSPHORUS 2.8 MG/DL (2.3-4.5); POTASSIUM 3.4 MMOL/L (3.5-5.1); SODIUM 136 MMOL/L (135-145); TOTAL CARBON DIOXIDE 21.5 MMOL/L (24-32); TOTAL PROTEIN 4.8 G/DL (6.4-8.2); eGFR 34 ML/MIN
[2020-04-11] MEDS: lactobacillus rhamnosus 10,000 MMU CELLS/CAPSULE PO SCH ×2 (08:22→19:30)
[2020-04-11] MEDS: predniSONE 20 mg tablet PO SCH (08:22)
[2020-04-11] MEDS: NUT.TX.GLUC.INTOLER,LAC-FR,SOY (GLUCERNA) 237 ML PO SCH ×3 (08:22→18:30)
[2020-04-11] MEDS: heparin, porcine 5000 units/ml vial SQ SCH ×2 (08:23→19:31)
[2020-04-11] MEDS: nystatin 15 GM powder TP SCH ×3 (08:23→20:33)
[2020-04-11] MEDS: insulin Lispro (HumaLOG) vial - multi-dose SQ SCH ×3 (08:33→19:40)
[2020-04-11] MEDS ORDERED: magnesium 4gm in 100ml NS 100 ML IV PRN (10:15)
[2020-04-11] MEDS ORDERED: magnesium 2GM in 50ml NS 50 ML IV PRN (10:15)
[2020-04-11] MEDS ORDERED: potassium Cl 40MEQ/1/2NS 520ml 520 ML IV PRN (10:15)
[2020-04-11] MEDS ORDERED: potassium Cl 20 mEq SR tablet PO PRN ×2 (10:15)
[2020-04-11] MEDS ORDERED: magnesium Cl slow-release 64mg tablet PO PRN (10:15)
[2020-04-11 11:00] VITALS: BP 102/65
[2020-04-11 15:00] VITALS: BP 104/62
--- NOTE | 2020-04-11 16:17 | NUR ---
Initial: pt admitted with sepsis secondary to UTI, leukocytosis, and SALTY per MD progress note with h/o ulcerative colitis, DM. Not eating well, Drinking 100% of Glucerna with meals today. Kitchen is sending double protein with meals however PO intake 0% for first four meals, eating 0-25% 04/11. This is his 3rd admission per H&P, past visits received treatment for upper respiratory infection and discharged with prednisone; has been lethargic. A1c 11.7%, newly diagnosed DM earlier this month and had received written DM education handout with verbal review at that time. recommend: 1. continue carb controlled diet 2. continue Glucerna with meals 3. bowel care as needed 4. wt per rx Addendum: 04/11/20 at [address] Amended: Links added.
[2020-04-11] MEDS: acetaminophen 325mg tablet PO PRN ×2 (17:39→23:48)
[2020-04-11 18:00] VITALS: BP 118/71
--- NOTE | 2020-04-11 18:45 | NUR ---
Problems reprioritized. Patient report given, questions answered & plan of care reviewed with KRISTOPHER Loja.
--- NOTE | 2020-04-11 18:45 | NUR ---
Patient in room PCU 3024. I have received report from KRISTOPHER Vogt and had the opportunity to ask questions and assume patient care.
[2020-04-11] MEDS: insulin glargine (Lantus) pen - multi-dose SQ SCH (21:37)
[2020-04-11 23:08] VITALS: BP 87/45
--- NOTE | 2020-04-11 23:09 | NUR ---
Patient did not want to move from his side so the tech could grt an accurate blood pressure Addendum: 04/11/20 at 2312 by Freedom Puckett RN Amended: Links added.
--- NOTE | 2020-04-12 00:16 | NUR ---
One Tylenol fell to the floor, so I had to get another one from the [facility], Patient has been refusing to sit in an upright position to take medications. I educated him on why it is important to take medication an upright position. He said; " I am comfortable this way".
[2020-04-12] MEDS: HYDROcodone/acetaminophen 5mg/325mg tablet PO PRN ×2 (02:12→08:43)
[2020-04-12 06:00] VITALS: BP 104/67
--- NOTE | 2020-04-12 06:36 | NUR ---
Problems reprioritized. Patient report given, questions answered & plan of care reviewed with KRISTOPHER White.
[2020-04-12 06:37] LABS: BASOPHILS % (AUTO) 0.3 % (0-1); EOSINOPHILS # (AUTO) 0.1 X10'3 (0-0.9); EOSINOPHILS % (AUTO) 1.1 % (0-6); HEMATOCRIT 29.4 % (42.0-52.0); HEMOGLOBIN 9.8 g/dl (14.0-17.9); LYMPHOCYTES # (AUTO) 0.6 X10'3 (1.1-4.8); LYMPHOCYTES % (AUTO) 4.9 % (21-51); MEAN CORPUSCULAR HEMOGLOBIN 29.1 PG (27.0-31.0); MEAN CORPUSCULAR HGB CONC 33.4 g/dL (33.0-36.5); MEAN PLATELET VOLUME 8.2 FL (7.4-10.4); MONOCYTES # (AUTO) 0.5 X10'3 (0-0.9); MONOCYTES % (AUTO) 4.4 % (2-12); NEUTROPHILS # (AUTO) 10.4 X10'3 (1.8-7.7); NEUTROPHILS % (AUTO) 89.3 % (42-75); PLATELET COUNT 415 X10'3 (140-440); RED BLOOD COUNT 3.38 X10'6 (4.70-6.10); RED CELL DISTRIBUTION WIDTH 15.7 % (11.5-14.5); WHITE BLOOD COUNT 11.7 X10'3 (4.5-11.0)
[2020-04-12 06:50] LABS: ALANINE AMINOTRANSFERASE 41 U/L (12-78); ALBUMIN 1.2 G/DL (3.4-5.0); ALBUMIN/GLOBULIN RATIO 0.3 (1.1-1.5); ALKALINE PHOSPHATASE 173 IU/L (46-116); ANION GAP 9 (8-16); ASPARTATE AMINO TRANSFERASE 62 U/L (10-37); BILIRUBIN,TOTAL 0.9 MG/DL (0.1-1.0); BLOOD UREA NITROGEN 24 MG/DL (7-18); BUN/CREATININE RATIO 12.2 (5.4-32.0); CALCIUM 8.2 MG/DL (8.5-10.1); CHLORIDE 105 MMOL/L (99-107); CREATININE 1.97 MG/DL (0.60-1.10); GLUCOSE 108 MG/DL (70-104); MAGNESIUM 1.8 MG/DL (1.5-2.4); PHOSPHORUS 3.7 MG/DL (2.3-4.5); POTASSIUM 3.7 MMOL/L (3.5-5.1); SODIUM 137 MMOL/L (135-145); TOTAL CARBON DIOXIDE 23.3 MMOL/L (24-32); TOTAL PROTEIN 5.3 G/DL (6.4-8.2); eGFR 36 ML/MIN
--- NOTE | 2020-04-12 06:52 | NUR ---
Patient in room PCU 3024. I have received report from Freedom SUMMERS and had the opportunity to ask questions and assume patient care.
[2020-04-12] MEDS: K and/or MAG REPLACEMENT MC SCH ×2 (08:00→20:00)
[2020-04-12] MEDS: lactobacillus rhamnosus 10,000 MMU CELLS/CAPSULE PO SCH ×2 (08:41→20:57)
[2020-04-12] MEDS: predniSONE 20 mg tablet PO SCH (08:41)
[2020-04-12] MEDS: nystatin 15 GM powder TP SCH ×3 (08:42→20:57)
[2020-04-12] MEDS: heparin, porcine 5000 units/ml vial SQ SCH ×2 (08:42→20:57)
[2020-04-12] MEDS: piperacillin/tazo 3.375gm/50ml 50 ML IV SCH ×2 (08:43→16:51)
[2020-04-12] MEDS: NUT.TX.GLUC.INTOLER,LAC-FR,SOY (GLUCERNA) 237 ML PO SCH ×3 (08:45→18:54)
[2020-04-12 11:00] VITALS: BP 97/56
[2020-04-12] MEDS ORDERED: saliva stimulant agent 45ml spray MM PRN (11:50)
[2020-04-12] MEDS: normal saline 1000ml 1,000 ML IV SCH (13:05)
[2020-04-12] MEDS: insulin Lispro (HumaLOG) vial - multi-dose SQ SCH ×2 (13:54→18:53)
[2020-04-12] MEDS: HYDROcodone/acetaminophen 10/325mg tab PO PRN ×2 (13:55→17:41)
[2020-04-12 15:00] VITALS: BP 108/66
--- NOTE | 2020-04-12 15:40 | NUR ---
Nutrition consult: Met with pt at bedside to obtain food preferences, d/w dietary. Reports his mouth has been dry, will send tilapia with dinner tonight per request and laron chicken with lunch tomorrow. Pt offered chopped meats with gravy; consider adding if continues with dry mouth. Addendum: 04/12/20 at [address] Amended: Links added.
[2020-04-12 18:00] VITALS: BP 107/76
--- NOTE | 2020-04-12 18:42 | NUR ---
Problems reprioritized. Patient report given, questions answered & plan of care reviewed with Jose SUMMERS.
--- NOTE | 2020-04-12 18:43 | NUR ---
Patient in room PCU 3024. I have received report from Cindy SUMMERS and had the opportunity to ask questions and assume patient care.
--- NOTE | 2020-04-12 18:49 | NUR ---
PAGER ID: [phone] MESSAGE: Eliseo Rene [id number]- FYI Dr. Deleon agreed that pt can be changed to 20ML/HR NS. Thank you. Cindy :)
[2020-04-12] MEDS: insulin glargine (Lantus) pen - multi-dose SQ SCH (21:07)
[2020-04-12 22:00] VITALS: BP 93/55
[2020-04-12] MEDS: acetaminophen 325mg tablet PO PRN (23:11)
[2020-04-13] MEDS: piperacillin/tazo 3.375gm/50ml 50 ML IV SCH ×4 (00:49→23:43)
[2020-04-13 02:00] VITALS: BP 105/59
[2020-04-13] MEDS: HYDROcodone/acetaminophen 10/325mg tab PO PRN (04:39)
[2020-04-13 06:15] VITALS: BP 98/61
--- NOTE | 2020-04-13 06:19 | NUR ---
Problems reprioritized. Patient report given, questions answered & plan of care reviewed with Yadira SUMMERS.
[2020-04-13 06:45] LABS: BASOPHILS # (AUTO) 0.1 X10'3 (0-0.2); EOSINOPHILS # (AUTO) 0.1 X10'3 (0-0.9); EOSINOPHILS % (AUTO) 1.4 % (0-6); HEMATOCRIT 29.1 % (42.0-52.0); HEMOGLOBIN 10.1 g/dl (14.0-17.9); LYMPHOCYTES # (AUTO) 0.7 X10'3 (1.1-4.8); LYMPHOCYTES % (AUTO) 6.6 % (21-51); MEAN CORPUSCULAR HEMOGLOBIN 29.9 PG (27.0-31.0); MEAN CORPUSCULAR HGB CONC 34.6 g/dL (33.0-36.5); MEAN CORPUSCULAR VOLUME 86.3 FL (78-98); MEAN PLATELET VOLUME 7.9 FL (7.4-10.4); MONOCYTES # (AUTO) 0.3 X10'3 (0-0.9); MONOCYTES % (AUTO) 3.1 % (2-12); NEUTROPHILS # (AUTO) 8.8 X10'3 (1.8-7.7); NEUTROPHILS % (AUTO) 87.9 % (42-75); PLATELET COUNT 434 X10'3 (140-440); RED BLOOD COUNT 3.37 X10'6 (4.70-6.10)
[2020-04-13 07:44] LABS: ALANINE AMINOTRANSFERASE 44 U/L (12-78); ALBUMIN 1.2 G/DL (3.4-5.0); ALBUMIN/GLOBULIN RATIO 0.3 (1.1-1.5); ALKALINE PHOSPHATASE 174 IU/L (46-116); ANION GAP 10 (8-16); ASPARTATE AMINO TRANSFERASE 53 U/L (10-37); BILIRUBIN,TOTAL 0.6 MG/DL (0.1-1.0); BLOOD UREA NITROGEN 23 MG/DL (7-18); BUN/CREATININE RATIO 11.8 (5.4-32.0); CALCIUM 7.8 MG/DL (8.5-10.1); CHLORIDE 103 MMOL/L (99-107); CREATININE 1.95 MG/DL (0.60-1.10); GLUCOSE 90 MG/DL (70-104); MAGNESIUM 1.7 MG/DL (1.5-2.4); PHOSPHORUS 4.5 MG/DL (2.3-4.5); POTASSIUM 3.5 MMOL/L (3.5-5.1); SODIUM 136 MMOL/L (135-145); TOTAL CARBON DIOXIDE 23.3 MMOL/L (24-32); TOTAL PROTEIN 5.6 G/DL (6.4-8.2); eGFR 36 ML/MIN
[2020-04-13] MEDS: lactobacillus rhamnosus 10,000 MMU CELLS/CAPSULE PO SCH ×2 (08:00→19:33)
[2020-04-13] MEDS: acetaminophen 325mg tablet PO PRN (08:00)
[2020-04-13] MEDS: predniSONE 20 mg tablet PO SCH (08:00)
[2020-04-13] MEDS: K and/or MAG REPLACEMENT MC SCH ×2 (08:00→19:36)
[2020-04-13] MEDS: NUT.TX.GLUC.INTOLER,LAC-FR,SOY (GLUCERNA) 237 ML PO SCH ×3 (08:01→18:05)
[2020-04-13] MEDS: nystatin 15 GM powder TP SCH ×3 (08:01→21:50)
[2020-04-13] MEDS: heparin, porcine 5000 units/ml vial SQ SCH ×2 (08:05→19:33)
[2020-04-13] MEDS: insulin Lispro (HumaLOG) vial - multi-dose SQ SCH ×3 (09:55→18:48)
[2020-04-13 12:00] VITALS: BP 110/56
[2020-04-13 15:00] VITALS: BP 108/75
[2020-04-13] MEDS: normal saline 1000ml 1,000 ML IV SCH (15:59)
[2020-04-13 18:00] VITALS: BP 114/80
--- NOTE | 2020-04-13 18:08 | NUR ---
Problems reprioritized. Patient report given, questions answered & plan of care reviewed with KRISTOPHER STERN.
--- NOTE | 2020-04-13 18:08 | NUR ---
Patient in room PCU 3024. I have received report from Yadira SUMMERS and had the opportunity to ask questions and assume patient care.
[2020-04-13 18:41] LABS: HSV 1 PCR Negative (Negative); HSV 2 PCR Negative (Negative)
[2020-04-13] MEDS: insulin glargine (Lantus) pen - multi-dose SQ SCH (21:58)
[2020-04-13 22:00] VITALS: BP 103/63
[2020-04-14 02:00] VITALS: BP 111/70
[2020-04-14] MEDS: HYDROcodone/acetaminophen 10/325mg tab PO PRN ×2 (03:53→09:54)
--- NOTE | 2020-04-14 06:15 | NUR ---
Problems reprioritized. Patient report given, questions answered & plan of care reviewed with Akosua SUMMERS.
--- NOTE | 2020-04-14 06:36 | NUR ---
Patient in room PCU 3024. I have received report from KRISTOPHER Garcia and had the opportunity to ask questions and assume patient care.
[2020-04-14 07:25] VITALS: BP 117/73
[2020-04-14 07:46] LABS: BASOPHILS # (AUTO) 0.1 X10'3 (0-0.2); EOSINOPHILS # (AUTO) 0.2 X10'3 (0-0.9); HEMOGLOBIN 9.7 g/dl (14.0-17.9); LYMPHOCYTES # (AUTO) 1.1 X10'3 (1.1-4.8); MEAN PLATELET VOLUME 8.2 FL (7.4-10.4); WHITE BLOOD COUNT 7.7 X10'3 (4.5-11.0)
[2020-04-14 07:47] LABS: HEMATOCRIT 28.7 % (42.0-52.0); LYMPHOCYTES % (AUTO) 14.6 % (21-51); MEAN CORPUSCULAR HEMOGLOBIN 29.2 PG (27.0-31.0); MEAN CORPUSCULAR HGB CONC 33.8 g/dL (33.0-36.5); MEAN CORPUSCULAR VOLUME 86.6 FL (78-98); MONOCYTES # (AUTO) 0.5 X10'3 (0-0.9); MONOCYTES % (AUTO) 6.7 % (2-12); NEUTROPHILS # (AUTO) 5.9 X10'3 (1.8-7.7); NEUTROPHILS % (AUTO) 75.7 % (42-75); PLATELET COUNT 428 X10'3 (140-440); RED BLOOD COUNT 3.32 X10'6 (4.70-6.10); RED CELL DISTRIBUTION WIDTH 16.1 % (11.5-14.5)
[2020-04-14] MEDS: K and/or MAG REPLACEMENT MC SCH ×2 (08:00→20:00)
[2020-04-14] MEDS: piperacillin/tazo 3.375gm/50ml 50 ML IV SCH ×2 (08:11→16:14)
[2020-04-14] MEDS: predniSONE 20 mg tablet PO SCH (08:12)
[2020-04-14] MEDS: nystatin 15 GM powder TP SCH ×3 (08:12→21:13)
[2020-04-14] MEDS: heparin, porcine 5000 units/ml vial SQ SCH ×2 (08:12→19:10)
[2020-04-14] MEDS: lactobacillus rhamnosus 10,000 MMU CELLS/CAPSULE PO SCH ×2 (08:12→19:08)
[2020-04-14] MEDS: NUT.TX.GLUC.INTOLER,LAC-FR,SOY (GLUCERNA) 237 ML PO SCH ×3 (08:20→18:00)
[2020-04-14 08:26] LABS: ALANINE AMINOTRANSFERASE 38 U/L (12-78); ALBUMIN 1.3 G/DL (3.4-5.0); ALBUMIN/GLOBULIN RATIO 0.3 (1.1-1.5); ALKALINE PHOSPHATASE 173 IU/L (46-116); ANION GAP 9 (8-16); ASPARTATE AMINO TRANSFERASE 40 U/L (10-37); BILIRUBIN,TOTAL 0.5 MG/DL (0.1-1.0); BLOOD UREA NITROGEN 26 MG/DL (7-18); BUN/CREATININE RATIO 16.4 (5.4-32.0); CALCIUM 8.1 MG/DL (8.5-10.1); CHLORIDE 103 MMOL/L (99-107); CREATININE 1.59 MG/DL (0.60-1.10); GLUCOSE 90 MG/DL (70-104); MAGNESIUM 1.7 MG/DL (1.5-2.4); PHOSPHORUS 5.1 MG/DL (2.3-4.5); POTASSIUM 3.5 MMOL/L (3.5-5.1); SODIUM 136 MMOL/L (135-145); TOTAL CARBON DIOXIDE 24.1 MMOL/L (24-32); TOTAL PROTEIN 5.6 G/DL (6.4-8.2); eGFR 46 ML/MIN
[2020-04-14] MEDS: insulin Lispro (HumaLOG) vial - multi-dose SQ SCH ×3 (09:03→19:13)
[2020-04-14 11:00] VITALS: BP 107/71
--- NOTE | 2020-04-14 11:43 | NUR ---
MD at bedside, aware of increased appetite, urine output, fluid intake and lab values. MD stated patient may discharge tomorrow.
--- NOTE | 2020-04-14 12:14 | NUR ---
Patient ambulated 1200 feet with rehab walker did, no issues noted.
--- NOTE | 2020-04-14 14:21 | NUR ---
Reassessment: PO intake much improved, eating 100%; 100% PO of glucerna. No nutrition problem at this time. recommend: 1. continue carb controlled diet 2. continue Glucerna with meals 3. bowel care as needed 4. wt per rx Addendum: 04/14/20 at [address] Amended: Links added.
[2020-04-14 15:00] VITALS: BP 104/73
[2020-04-14 18:00] VITALS: BP 125/81
--- NOTE | 2020-04-14 18:05 | NUR ---
Patient in room PCU 3024. I have received report from Akosua SUMMERS and had the opportunity to ask questions and assume patient care.
--- NOTE | 2020-04-14 18:16 | NUR ---
Problems reprioritized. Patient report given, questions answered & plan of care reviewed with KRISTOPHER Chambers.
--- NOTE | 2020-04-14 18:25 | NUR ---
Orientee documentation: I have reviewed and agree with all interventions, assessments performed and documented by Keisha SUMMERS.
[2020-04-14] MEDS: insulin glargine (Lantus) pen - multi-dose SQ SCH (21:20)
[2020-04-14 22:00] VITALS: BP 112/62
[2020-04-15] MEDS: piperacillin/tazo 3.375gm/50ml 50 ML IV SCH ×2 (00:32→08:11)
[2020-04-15 02:00] VITALS: BP 107/69
--- NOTE | 2020-04-15 06:19 | NUR ---
Problems reprioritized. Patient report given, questions answered & plan of care reviewed with Akosua SUMMERS.
--- NOTE | 2020-04-15 06:27 | NUR ---
Patient in room PCU 3024. I have received report from KRISTOPHER Chambers and had the opportunity to ask questions and assume patient care.
[2020-04-15 07:00] VITALS: BP 117/78
[2020-04-15 07:08] LABS: BASOPHILS # (AUTO) 0.1 X10'3 (0-0.2); BASOPHILS % (AUTO) 0.9 % (0-1); EOSINOPHILS # (AUTO) 0.1 X10'3 (0-0.9); EOSINOPHILS % (AUTO) 1.6 % (0-6); HEMATOCRIT 32.8 % (42.0-52.0); HEMOGLOBIN 11.1 g/dl (14.0-17.9); LYMPHOCYTES # (AUTO) 1.4 X10'3 (1.1-4.8); LYMPHOCYTES % (AUTO) 18.8 % (21-51); MEAN CORPUSCULAR HEMOGLOBIN 29.2 PG (27.0-31.0); MEAN CORPUSCULAR HGB CONC 33.7 g/dL (33.0-36.5); MEAN CORPUSCULAR VOLUME 86.7 FL (78-98); MEAN PLATELET VOLUME 7.8 FL (7.4-10.4); MONOCYTES # (AUTO) 0.6 X10'3 (0-0.9); MONOCYTES % (AUTO) 8.1 % (2-12); NEUTROPHILS # (AUTO) 5.1 X10'3 (1.8-7.7); NEUTROPHILS % (AUTO) 70.6 % (42-75); PLATELET COUNT 486 X10'3 (140-440); RED BLOOD COUNT 3.79 X10'6 (4.70-6.10); WHITE BLOOD COUNT 7.2 X10'3 (4.5-11.0)
[2020-04-15 07:12] LABS: ALANINE AMINOTRANSFERASE 36 U/L (12-78); ALBUMIN 1.5 G/DL (3.4-5.0); ALBUMIN/GLOBULIN RATIO 0.3 (1.1-1.5); ALKALINE PHOSPHATASE 200 IU/L (46-116); ANION GAP 9 (8-16); ASPARTATE AMINO TRANSFERASE 38 U/L (10-37); BILIRUBIN,TOTAL 0.4 MG/DL (0.1-1.0); BLOOD UREA NITROGEN 25 MG/DL (7-18); BUN/CREATININE RATIO 19.1 (5.4-32.0); CHLORIDE 103 MMOL/L (99-107); CREATININE 1.31 MG/DL (0.60-1.10); GLUCOSE 94 MG/DL (70-104); MAGNESIUM 1.8 MG/DL (1.5-2.4); PHOSPHORUS 5.2 MG/DL (2.3-4.5); POTASSIUM 3.8 MMOL/L (3.5-5.1); SODIUM 137 MMOL/L (135-145); TOTAL CARBON DIOXIDE 24.6 MMOL/L (24-32); TOTAL PROTEIN 6.3 G/DL (6.4-8.2); eGFR 57 ML/MIN
[2020-04-15] MEDS: K and/or MAG REPLACEMENT MC SCH (08:00)
[2020-04-15] MEDS: lactobacillus rhamnosus 10,000 MMU CELLS/CAPSULE PO SCH (08:12)
[2020-04-15] MEDS: nystatin 15 GM powder TP SCH ×2 (08:12→13:45)
[2020-04-15] MEDS: heparin, porcine 5000 units/ml vial SQ SCH (08:12)
[2020-04-15] MEDS: predniSONE 20 mg tablet PO SCH (08:12)
[2020-04-15] MEDS: NUT.TX.GLUC.INTOLER,LAC-FR,SOY (GLUCERNA) 237 ML PO SCH ×2 (08:20→13:45)
[2020-04-15] MEDS: insulin Lispro (HumaLOG) vial - multi-dose SQ SCH ×2 (09:49→13:58)
[2020-04-15] MEDS ORDERED: PRED20TA PO (10:47)
[2020-04-15 11:00] VITALS: BP 126/78
--- NOTE | 2020-04-15 11:10 | NUR ---
Per CM, patient needs a PICC line placed to so that the patient can go home on antibiotics. Called to confirm with Dr. Paredes to have consent signed for placement of PICC. pending return call.
--- NOTE | 2020-04-15 11:23 | NUR ---
[id number] Eliseo Rene, order for midline. Akosua [id number]
--- NOTE | 2020-04-15 15:06 | NUR ---
5f dual lumen midline placed with ultrasound guidance x1 attempt with success tip ends midaxillary both lumens aspirate blood and flushed without difficulty ref [id number] lot [id number] nivia henao
--- NOTE | 2020-04-15 16:52 | NUR ---
Patient d/c home with spouse in stable condition. Peripheral IV removed, midline in place for home infusion per provider order. Telemetry box removed and returned to telegraph printer mechanic. All belongings sent with patient. Medications and discharge instructions reviewed with patient. Understanding verbalized by patient. Medications sent via eScript to [facility] service.
--- NOTE | 2020-04-15 17:06 | NUR ---
Orientee documentation: I have reviewed and agree with all interventions, assessments performed and documented by Keisha SUMMERS.
[2020-04-16 14:51] LABS: CRYPTOCOCCUS ANTIGEN, CSF Negative (Negative)
[2020-04-16 21:17] LABS: VDRL, CSF Non Reactive (Non Rea:<1:1)
== END 2020-04-15 15:27 | disposition home or self-care (01) | DRG 872 ==
LOC: ER 00:23 → ED HOLD 13:05 → EDBEDREQ 04-08 19:36 → PCU 3S 04-08 20:51
PROVIDERS: ADMIT Family Medicine; ATTEND Family Medicine
PROC: 009U3ZX Drainage of Spinal Canal, Percutaneous Approach, Diagnostic (ICD-10-PCS; principal; 2020-04-09)
PROC: B01B1ZZ Fluoroscopy of Spinal Cord using Low Osmolar Contrast (ICD-10-PCS; 2020-04-09)
DX: A41.9 Sepsis, unspecified organism (principal); N13.6 Pyonephrosis; N17.9 Acute kidney failure, unspecified; K51.90 Ulcerative colitis, unspecified, without complications; D35.2 Benign neoplasm of pituitary gland; E11.22 Type 2 diabetes mellitus with diabetic chronic kidney disease; E11.65 Type 2 diabetes mellitus with hyperglycemia; E66.01 Morbid (severe) obesity due to excess calories; E86.9 Volume depletion, unspecified; N18.9 Chronic kidney disease, unspecified; I95.9 Hypotension, unspecified; Z20.828 Contact with and (suspected) exposure to other viral communicable diseases; Z79.899 Other long term (current) drug therapy; Z87.442 Personal history of urinary calculi; Z87.01 Personal history of pneumonia (recurrent); Z79.4 Long term (current) use of insulin
CPT/HCPCS: 36415; 62328; 71045; 72157; 72158; 76775; 76937; 77003; 80053; 80061; 80305; 81001; 82570; 82728; 82945; 82948; 83605; 83615; 83735; 84100; 84145; 84157; 84300; 85025; 85384; 85610; 85651; 85730; 86140; 86592; 86617; 86788; 86789; 87015; 87040; 87070; 87081; 87088; 87207; 87210; 87502; 87503; 87529; 87635; 87899; 89051; 93005; 94150; 94760; 96365; 97110; 97116; 97161; 97530; 99152; 99153; 99285; A4620; A9575; C9803; G0378; J0692; J0696; J1200; J1644; J1815; J2250; J2543; J3010; J3475; J3490; J7030; J7500; J7512